=== PATIENT | female | born 1975 | race Caucasian/White ===

== ENCOUNTER → 2017-08-02 | Outpatient (CLI) | payer OTHER ==
--- NOTE | 2017-08-02 15:31 | MAMMOGRAPHY REPORT ---
BILATERAL DIGITAL SCREENING MAMMOGRAM WITH CAD: 08/02/2017 CLINICAL HISTORY: Routine screening. Patient has no complaints. TECHNIQUE: Bilateral CC and MLO views were obtained. Current study was also evaluated with a Compute r Aided Detection (CAD) system. COMPARISON: Additional films were requested but not obtained. [facility] Requested today. BREAST COMPOSITION: There are scattered areas of fibroglandular density in both breasts. FINDINGS: [place] skin markers were placed overlying the each nipple. There are benign coarse and r im calcifications bilaterally. No suspicious mass, architectural distortion or cluster of microcalci fications is seen. IMPRESSION: ACR BI-RADS CATEGORY 1: NEGATIVE There is no mammographic evidence of malignancy. Prior outside mammograms are currently being reques evelyne and if obtained and will be reviewed, compared to the current exam to assess for any more subtle changes, and an addendum will be made to this report. Otherwise, a 1 year screening mammogram is rec ommended. The patient will receive written notification of the results. Approximately 10% of breast cancers are not detected with mammography. A negative mammographic report should not delay biopsy if a clinically suggestive mass is present. Chelsey Crawford M.D. ay/:08/02/2017 15:03:40 Intern: Yumiko RAMIREZ(Pillo)(Demetris), [facility] letter sent: Normal 1/2 BI-RADS Code: ACR BI-RADS Category 1: Negative
== END | disposition home or self-care (01) ==
LOC: C.MAMM 13:03
PROVIDERS: ATTEND Family Medicine
DX: Z12.31 Encounter for screening mammogram for malignant neoplasm of breast (principal)

== ENCOUNTER 2019-11-13 07:56 | Inpatient (IN) ==
--- NOTE | 2019-11-01 22:47 | PAT Medication Instructions ---
Medication Instructions Date of Service November 01, 2019 Home Medications Allergy Shots 1 dose UD PRN Bentyl 20 mg PO UD PRN albuterol sulfate 3 puff INHALATION UD PRN aspirin [Aspir-81] 81 mg PO DAILY carvedilol 3.125 mg PO BID cyclobenzaprine 15 mg PO UD PRN fluticasone propionate [Flonase Allergy Relief] 1 spray INTRANASAL DAILY losartan 100 mg PO HS nitroglycerin [Nitrolingual] 400 mcg SUBLINGUAL UD PRN omeprazole magnesium [Prilosec OTC] 20 mg PO QAM ondansetron HCl [Zofran] 4 mg PO UD PRN rosuvastatin [Crestor] 20 mg PO HS valacyclovir [Valtrex] 500 mg PO HS Continue as directed Allergy Shots 1 dose UD PRN nitroglycerin [Nitrolingual] 400 mcg SUBLINGUAL UD PRN DO NOT take the morning of surgery Bentyl 20 mg PO UD PRN cyclobenzaprine 15 mg PO UD PRN Take morning of surgery With a small sip of water, OTHERWISE NOTHING TO EAT OR DRINK AFTER MIDNIGHT: albuterol sulfate 3 puff INHALATION UD PRN (if needed) aspirin [Aspir-81] 81 mg PO DAILY carvedilol 3.125 mg PO BID fluticasone propionate [Flonase Allergy Relief] 1 spray INTRANASAL DAILY nitroglycerin [Nitrolingual] 400 mcg SUBLINGUAL UD PRN (if needed) omeprazole magnesium [Prilosec OTC] 20 mg PO QAM ondansetron HCl [Zofran] 4 mg PO UD PRN (if needed) Take evening before surgery Bentyl 20 mg PO UD PRN (if needed) albuterol sulfate 3 puff INHALATION UD PRN (if needed) carvedilol 3.125 mg PO BID cyclobenzaprine 15 mg PO UD PRN (if needed) fluticasone propionate [Flonase Allergy Relief] 1 spray INTRANASAL DAILY losartan 100 mg PO HS nitroglycerin [Nitrolingual] 400 mcg SUBLINGUAL UD PRN (if needed) ondansetron HCl [Zofran] 4 mg PO UD PRN (if needed) rosuvastatin [Crestor] 20 mg PO HS valacyclovir [Valtrex] 500 mg PO HS Other Notes If you have any questions please call us at [phone] or [phone] or [phone] or [phone]
--- NOTE | 2019-11-02 08:38 | History & Physical Report ---
Date of Service November 02, 2019 date of surgery: 11-13-19 Assessment & Plan (1) Arthritis of knee, left: Further care discussed with patient and at this point in time has failed conservative measures and would like to proceed with a left total knee replacement. Plan on discharge will be home with home health physical therapy. DVT prophalaxis with TEDs, SCDs and will also place on aspirin 81 mg p.o. b.i.d. for a month postop. Patient will have follow up appointment in our office two weeks post op for staple/suture removal and re-evaluation. Patient otherwise has no other questions or concerns. she has a long-standing history of knee pain, she has had multiple knee scopes most recently in December with minimal to no relief she has grade 4 [id number] changes medial compartment grade 4 [id number] changes patellofemoral compartment she has had Visco supplementations multiple times cortical steroid injections multiple times been through clinical trials all with no relief she is only 44 years old we discussed previously consideration for total knee arthroplasty as a last resort discussed risk complications at this point that she is having substantial effect on quality of life we discussed the fact of a total joint replacements having a finite lifespan possibly need to be revised in her lifetime at this point, it is felt her best option is to move forward with total joint placement the point she can no longer tolerate the pain due to the fact we have exhausted all other c onservative measures. History of Present Illness Chief Complaint: left knee pain Primary Care Provider: Rogerio Arango MD Nkechi is a 44 year old female that complains of Left knee pain, presents for pre- op evaluation prior to a left total knee replacement by dr Ornelas at [facility]. She complains of pain, crepitus, decreased range of motion, instability and stiffness in her left knee. she states that the symptoms have been chronic and non-traumatic. she states that the symptoms occur constantly with intermittent worsening. Currently the patient states that the symptoms are moderate-severe. The pain is described as aching, sharp and throbbing. The symptoms occur continuously. The symptoms are aggravated by ascending stairs, daily activities, first steps while awake walking. Prior NSAIDs include Ibuprofen, Aleve, Mobic as well as Voltaren Gel. Prior pain medications include Tylenol and [place]. she has been treated with multiple previous visco series and cortisone injections in the past without much relief. She has had multiple knee arthroscopies, most recently December of last year which did not provide any relief. she was referred to clinical trials as well but was not a qualifying candidate. She discussed with Dr Ornelas the risks and benefits of the procedure as well as the longevity of the knee and need for revision surgery in the future given her age, she understands these risks but feels the pain is interfering her her quality of life and would like to proceed with a left knee replacement. Allergies Allergy/AdvReac Type Severity Reaction Status Date / Time Penicillins Allergy Unknown BABY - Verified 10/19/19 11:51 RASH & ITCHY - SEE NOTES BELOW Quinolones Allergy Unknown RASH Verified 10/19/19 11:51 tramadol Allergy Unknown FLU LIKE Verified 10/19/19 11:51 SYMPTOMS erythromycin base AdvReac Unknown N/V Verified 10/19/19 11:51 hydrocodone AdvReac Unknown SEE NOTES Verified 10/19/19 11:51 BELOW - "DIDN'T WORK ANYMORE" morphine AdvReac Unknown VERTIGO Verified 10/19/19 12:26 AND MOTION SICKNESS simvastatin [From Zocor] AdvReac Unknown MUSCLE Verified 10/19/19 11:51 ACHES CHEAP JEWELRY Allergy Unknown "CHEAP Uncoded 10/19/19 12:26 JEWELRY" BLISTERS/ITCHY LEVAQUIN Allergy Unknown ITCHY & Uncoded 10/19/19 11:51 SWELLING POLLEN,TREES, MOLD AND DOGS Allergy Unknown RECEIVES Uncoded 10/19/19 12:26 ALLERGY SHOTS WEEKLY FOR Home Medications Home Medications Medication Instructions Recorded Confirmed Type Allergy Shots 1 dose UD PRN 10/19/19 10/19/19 History Bentyl 20 mg PO UD PRN 10/19/19 10/19/19 History albuterol sulfate 3 puff INHALATION UD PRN 10/19/19 10/19/19 History aspirin [Aspir-81] 81 mg PO DAILY 10/19/19 10/19/19 History carvedilol 3.125 mg PO BID 10/19/19 10/19/19 History cyclobenzaprine 15 mg PO UD PRN 10/19/19 10/19/19 History fluticasone propionate [Flonase 1 spray INTRANASAL DAILY 10/19/19 10/19/19 History Allergy Relief] losartan 100 mg PO HS 10/19/19 10/19/19 History nitroglycerin [Nitrolingual] 400 mcg SUBLINGUAL UD PRN 10/19/19 10/19/19 History omeprazole magnesium [Prilosec OTC] 20 mg PO QAM 10/19/19 10/19/19 History ondansetron HCl [Zofran] 4 mg PO UD PRN 10/19/19 10/19/19 History rosuvastatin [Crestor] 20 mg PO HS 10/19/19 10/19/19 History valacyclovir [Valtrex] 500 mg PO HS 10/19/19 10/19/19 History Past Med/Surg History Medical History Acid reflux Blood in urine CHRONIC History of anesthesia reaction EMOTIONAL AFTER, CRYING AND GETS COLD History of heart attack 06/21/15 History of recurrent UTIs NONE IN LAST YR HTN (hypertension) Hyperlipidemia Osteoarthritis Sleep apnea CPAP Stress incontinence Surgical History History of arthroscopy of left knee MULTIPLE History of arthroscopy of right knee MULTIPLE History of back surgery History of bilateral breast reduction surgery AND LIFT History of cardiac cath STENT X1 ([place])- MONY [facility]ELAR History of section History of colonoscopy History of endoscopy History of foot surgery History of knee surgery LEFT RAMY History of laparoscopic cholecystectomy History of laparoscopy X2 FOR ENDOMETRIOSIS History of lumbar fusion History of partial hysterectomy OVARIES REMAIN History of throat surgery VOCAL CORDS NODULE/POLYP - X2 SURGERIES FOR TUBES IN EARS AT FIRST SURGERY AND 1 REMOVED AT SECOND SURGERY History of tonsillectomy and adenoidectomy Family History Father Family history of diabetes mellitus Mother Family history of diabetes mellitus Grandfather (Paternal) Family history of esophageal cancer Other Family history of lung cancer Family history of uterine cancer Social History Preferred Language: Russian Communication Ability: DYSLEXIC Surgical Manager Required: No Beliefs That Will Affect Care: None Current Living Situation: Spouse Other Information That Helps Us Care for You: No Feels Safe at Home: Yes Smoking Status: Current every day smoker Tobacco Type: cigarettes ; Cigarettes Per Day: UP TO 2 PACKS PER DAY ULTRA LIGHTS/ ADVISED NPO ; Do You Dip or Chew Tobacco: No ; Hx Alcohol Use: Yes Hx Substance Use: No Review of Systems Review of Systems: All systems reviewed & are unremarkable except as noted in HPI & below Constitutional: no fever, no chills and no sweats Respiratory: no cough and no dyspnea Cardiovascular: no chest pain, no dyspnea and no orthopnea Gastrointestinal: no abdominal pain, no nausea and no vomiting Musculoskeletal: as per Subjective / HPI Physical Exam Physical Exam: Ht: 5ft 3in Wt: 133kg BP: 128/82 Pulse: 80 Constitutional: WD/WN, vitals as above no acute distress Respiratory: normal respiratory effort, lungs clear to auscultation no respiratory distress, no labored breathing and does not use accessory muscles Cardiovascular: RRR, no murmur, no edema Gastrointestinal (Abdomen): normal bowel sounds, soft, nontender, no hepatosplenomegaly Musculoskeletal: Knee: + knee abnormal to inspection (left knee), + effusion (mild effusion), + surgical incision (well healed portals), + limited ROM of knee (ROM 0/3/110), + knee ROM with crepitation, + joint line tenderness (medial joint line) and + Vivien's sign positive; no deformity, no skin erythema, no ecchymosis, no valgus laxity, no varus laxity, anterior drawer test negative, Rochelle's sign negative and pivot shift test negative Results & Data Diagnostic Findings Left Knee X-ray from December 2018 confirms degenerative changes to the left knee, greatest medial compartments and patellofemoral joint, showing joint space narrowing, osteophyte formation. no acute bony pathology noted.
--- NOTE | 2019-11-02 11:55 | Anesthesiology Consultation ---
Date of Service November 02, 2019 Assessment & Plan (1) Encounter for pre-operative examination: PCP clearance 11/02/2019: "Patient is medically cleared. Perioperative recommendations regarding medications and treatment include continue current medications per surgeon." Case discussed with Dr. Klein. Patient has not been seen by cardiology since 2016; she states she was discharged from their care and to f/u with PCP. Confirmed with former cardiology office that she did not have any f/u appointments scheduled. Patient has poor functional status but no anginal symptoms. Post [place] echo from 2014 shows preserved EF. She is on appropriate medical mgmt for her CAD. OK to proceed with PCP clearance only. Chart Review Chart Review: Acceptable Risk for Surgery and Patient seen in Pre Admission Testing Teaching & Discussion Instructed NPO after midnight before surgery, except medications with 15 cc of water. Medication instructions provided according to the PAT guidelines. History Surgery Operation Date: 11/13/19 11:15 Proposed Procedures p Left Total Knee Arthroplasty - Carroll Ornelas DO Height/Weight Height: 5 ft 3 in Weight: 126.6 kg Allergies Allergy/AdvReac Type Severity Reaction Status Date / Time Penicillins Allergy Unknown BABY - Verified 10/19/19 11:51 RASH & ITCHY - SEE NOTES BELOW Quinolones Allergy Unknown RASH Verified 10/19/19 11:51 tramadol Allergy Unknown FLU LIKE Verified 10/19/19 11:51 SYMPTOMS erythromycin base AdvReac Unknown N/V Verified 10/19/19 11:51 hydrocodone AdvReac Unknown SEE NOTES Verified 10/19/19 11:51 BELOW - "DIDN'T WORK ANYMORE" morphine AdvReac Unknown VERTIGO Verified 10/19/19 12:26 AND MOTION SICKNESS simvastatin [From Zocor] AdvReac Unknown MUSCLE Verified 10/19/19 11:51 ACHES CHEAP JEWELRY Allergy Unknown "CHEAP Uncoded 10/19/19 12:26 JEWELRY" BLISTERS/ITCHY LEVAQUIN Allergy Unknown ITCHY & Uncoded 10/19/19 11:51 SWELLING POLLEN,TREES, MOLD AND DOGS Allergy Unknown RECEIVES Uncoded 10/19/19 12:26 ALLERGY SHOTS WEEKLY FOR Medications Home Medications Medication Instructions Recorded Confirmed Last Taken Allergy Shots 1 dose UD PRN 10/19/19 10/19/19 Unknown Bentyl 20 mg PO UD PRN 10/19/19 10/19/19 Unknown albuterol sulfate 3 puff INHALATION UD PRN 10/19/19 10/19/19 Unknown aspirin [Aspir-81] 81 mg PO DAILY 10/19/19 10/19/19 Unknown carvedilol 3.125 mg PO BID 10/19/19 10/19/19 10/19/19 cyclobenzaprine 15 mg PO UD PRN 10/19/19 10/19/19 Unknown fluticasone propionate [Flonase 1 spray INTRANASAL DAILY 10/19/19 10/19/19 Unknown Allergy Relief] losartan 100 mg PO HS 10/19/19 10/19/19 Unknown nitroglycerin [Nitrolingual] 400 mcg SUBLINGUAL UD PRN 10/19/19 10/19/19 Unknown omeprazole magnesium [Prilosec OTC] 20 mg PO QAM 10/19/19 10/19/19 10/19/19 ondansetron HCl [Zofran] 4 mg PO UD PRN 10/19/19 10/19/19 Unknown rosuvastatin [Crestor] 20 mg PO HS 10/19/19 10/19/19 Unknown valacyclovir [Valtrex] 500 mg PO HS 10/19/19 10/19/19 Unknown Past Medical History Medical History (Updated 11/08/19 @ 14:30 by Jose Alfredo Gayle) Acid reflux Blood in urine CHRONIC, MICROSCOPIC. NO LONGER FOLLOWS WITH UROLOGY. CAD (coronary artery disease) H/O [place]; s/p Xience stent to mid Ramus 2014. Preserved EF. No echo available, but cardiology note from 2017 has documented post-[place] echo from 2015 showing EF 50-55%, lateral hypokinesis, aortic root 3.8cm. History of heart attack 06/21/15 History of recurrent UTIs NONE IN LAST YR HTN (hypertension) Hyperlipidemia Morbid obesity with BMI of 45.0-49.9, adult Osteoarthritis Sleep apnea CPAP Stress incontinence Exercise / Class Metabolic Activity III < 4 Walking/Shop/Light housework (Cannot do stairs or incline without SOB; denies CP or SOB with ambulation on one level.) Past Family History Family History Father Family history of diabetes mellitus Mother Family history of diabetes mellitus Grandfather (Paternal) Family history of esophageal cancer Other Family history of lung cancer Family history of uterine cancer Past Surgical History Surgical History History of arthroscopy of left knee MULTIPLE History of arthroscopy of right knee MULTIPLE History of back surgery History of bilateral breast reduction surgery AND LIFT History of cardiac cath STENT X1 ([place])- MONY AVELAR History of section History of colonoscopy History of endoscopy History of foot surgery History of knee surgery LEFT RAMY History of laparoscopic cholecystectomy History of laparoscopy X2 FOR ENDOMETRIOSIS History of lumbar fusion History of partial hysterectomy OVARIES REMAIN History of throat surgery VOCAL CORDS NODULE/POLYP - X2 SURGERIES FOR TUBES IN EARS AT FIRST SURGERY AND 1 REMOVED AT SECOND SURGERY History of tonsillectomy and adenoidectomy Past Anesthesia History No Hx of Anesthesia Complications (OTHER THAN BELOW) and No Family Hx of Anesthesia Complications EMOTIONAL ON EMERGENCE FROM ANESTHESIA; CRYING. GETS COLD/SHIVERS. History of PONV No Hx of PONV (other than nausea from pain meds post op) and Hx of Motion Sickness Social History Smoking Status: Current every day smoker tobacco type: cigarettes Smoking cigarettes per day: 1-2 PACKS PER DAY/ ADVISED NPO Do You Dip or Chew Tobacco: No Hx Alcohol Use: Yes alcohol intake frequency: holidays/special occasions only Hx Substance Use: No substance use type: does not use Review of Systems Pt denies any recent chest pain, shortness of breath, palpitations, fever or URI. +dry cough, mild sinus drainage Physical Exam Vital Signs BP: not documented at PAT visit, but 110/78 at PCP clearance P: 79bpm SPO2: 99% RA T: 99.4 F R: 18 Constitutional + obese ENMT Mouth: + macroglossia; no dental restorations, no chipped teeth and no loose teeth Thyromental Distance: > or= 3.5 Finger Breadths (3.5) Mallampati Class: II Neck + short neck and + thick neck; neck extension not limited Respiratory normal respiratory effort Auscultation: lungs clear to auscultation bilaterally Cardiovascular Rate/Rhythm: regular rate and regular rhythm Heart Sounds: no murmur Testing Laboratory Results 11/02/19 12:00 11/02/19 11:00 PT 10.0 Seconds (9.0-12.0) 11/02/19 12:00 INR 1.0 (0.9-1.1) 11/02/19 12:00 APTT 30.5 Seconds (21.0-31.0) 11/02/19 12:00 Hemoglobin A1c 5.7 % (4.5-5.6) H 11/02/19 12:00 Urine Color Yellow 11/02/19 12:00 Urine Appearance Cloudy (Clear) A 11/02/19 12:00 Urine pH 5.5 (4.5-7.5) 11/02/19 12:00 Ur Specific [place] 1.023 (1.000-1.030) 11/02/19 12:00 Urine Protein Negative (Negative) 11/02/19 12:00 Urine Glucose (UA) Negative (Negative) 11/02/19 12:00 Urine Ketones Negative (Negative) 11/02/19 12:00 Urine Nitrite Negative (Negative) 11/02/19 12:00 Ur Leukocyte Esterase Negative (Negative) 11/02/19 12:00 Urine WBC (Auto) 1-5 /hpf (0-5) 11/02/19 12:00 Urine RBC (Auto) 10-30 /hpf (0-4) H 11/02/19 12:00 U Hyaline Cast (Auto) 1-5 /lpf (0-5) 11/02/19 12:00 U Epithel Cells (Auto) >30 /lpf (0-5) H 11/02/19 12:00 Urine Bacteria (Auto) 1+ (Negative) H 11/02/19 12:00 Blood Type A Positive 11/02/19 12:00 Antibody Screen NEGATIVE 11/02/19 12:00 11/02/19 12:00 Urine Culture - Final Urine,Clean Catch More than three types of organisms present, all moderate counts mixed probable skin rui. No further identifications or sensitivities to follow. Electrocardiogram Date: 11/02/19 Findings: + NSR @ (73) Chest X-Ray Date: 11/02/19 Findings: + NAD Stress Test Date: 11/05/14 Type: DSE Resting EF: 55-59% There is an adequate and appropriate heart rate and blood pressure response to the dobutamine/atropine stress protocol. The stress echo was negative for inducible ischemia. LV wall motion is normal at rest and with stress. LV systolic function is normal. No significant valvular disease is present.
--- NOTE | 2019-11-02 12:51 | XRay Report ---
XR chest Pre-admission PA/Lat CLINICAL HISTORY: Preoperative evaluation. COMPARISON STUDY: Chest radiograph March 06, 2006. FINDINGS: Lung volumes are normal. Lungs are clear. There is no pneumothorax or pleural effusion. Car diac size is normal. Mediastinal contours are normal. There is no evidence for pulmonary edema. IMPRESSION: No acute cardiopulmonary findings. ACT 112: Negative or not required by law. Electronically signed by: Williams Julio M.D. 11/02/2019 12:50 PM
[2019-11-02 12:54] LABS: Basophils # (auto) 0.04 K/uL (0-0.2); Basophils % (auto) 0.4 %; Eosinophils # (auto) 0.45 K/uL (0-0.5); Eosinophils % (auto) 4.2 %; Hematocrit (blood only) 44.2 % (37-47); Immature Granulocytes # (auto) 0.03 K/uL (0.00-0.02); Immature Granulocytes % (auto) 0.3 %; Lymphocytes # (auto) 2.75 K/uL (1.2-3.4); Lymphocytes % (auto) 25.6 %; Mean Corpuscular Hemoglobin 32.3 pg (25-34); Mean Corpuscular Hgb Conc 33.9 g/dL (32-36); Mean Corpuscular Volume 95.3 fL (80-100); Mean Platelet Volume 11.3 fL (7.4-10.4); Monocytes # (auto) 0.75 K/uL (0.11-0.59); Neutrophils # (auto) 6.74 K/uL (1.4-6.5); Neutrophils % (auto) 62.5 %; Platelet Count 238 K/uL (130-400); RDW Coefficient of Variation 13.9 % (11.5-14.5); Red Blood Count 4.64 M/uL (4.2-5.4); White Blood Count 10.76 K/uL (4.8-10.8)
[2019-11-02 12:58] LABS: Appearance Urine Cloudy (Clear); Bacteria Urine Automated 1+ (Negative); Bilirubin Urine Negative (Negative); Blood Urine 2+ (Negative); Color Urine Yellow; Epithelial Cell Urine Auto >30 /lpf (0-5); Glucose Urine UA Negative (Negative); Ketones Urine Negative (Negative); Leukocyte Esterase Urine Negative (Negative); Nitrite Urine Negative (Negative); Protein Urine Negative (Negative); Specific Gravity Urine 1.023 (1.000-1.030); Urobilinogen Urine Negative (Negative); pH Urine 5.5 (4.5-7.5)
[2019-11-02 13:02] LABS: Estimated Average Glucose 117 mg/dl; Hemoglobin A1C 5.7 % (4.5-5.6)
[2019-11-02 13:04] LABS: Albumin Level 3.9 gm/dl (3.4-5.0); BUN Creatinine Ratio 10.2 (10-20); Creatinine Clr Calc Pharmacy 116.3 ml/min; Est GFR (African American) 103.9; Est GFR (Non-African American) 89.7; Potassium 4.4 mmol/L (3.5-5.1)
[2019-11-02 13:06] LABS: Partial Thromboplastin Ratio 1.1; Partial Thromboplastin Time 30.5 Seconds (21.0-31.0)
--- NOTE | 2019-11-03 07:45 | Electrocardiogram Report ---
Test Reason : Blood Pressure : / mmHG Vent. Rate : 073 BPM Atrial Rate : 073 BPM P-R Int : 160 ms QRS Dur : 084 ms QT Int : 378 ms P-R-T Axes : 058 052 041 degrees QTc Int : 416 ms Normal sinus rhythm Normal ECG When compared with ECG of 06-MAR-2006 03:03, No significant change was found Confirmed by Milton Rapp ([id number]) on 11/03/2019 7:45:31 AM Referred By: Carroll Ornelas Confirmed By:Drew Rapp
[~2019-11-13 07:56] MED LIST: ACETAMINOPHEN 500 MG TAB PO SCH; BUPIVACAINE 0.5 % 5 MG/1 ML PF 10ML VIAL ONE; CLINDAMYCIN 600 MG/54 ML BAG IV SCH; CeleBREX 200 MG CAP PO SCH; GABAPENTIN 900 MG DOSE PO SCH; LR 500ML BOLUS, THEN 15ML/HR IV SCH; ROPIVACAINE 0.5% 5 MG/ML 30 ML VIAL ONE; ROPIVACAINE 0.5% HCL/PF 150 MG, BUPIVACAINE 0.5% MPF 30 ML, EPINEPHrine 30MG/30ML (OR U... INSTIL SCH; TRANEXAMIC ACID 1,000 MG **IV Intra-op IV SCH; TRANEXAMIC ACID 1,000 MG **IV Pre-op IV SCH; dexAMETHasone 4 MG TAB PO SCH
[2019-11-13] MEDS ORDERED: MIDAZOLAM HCL 1 MG/ML 2ML VIAL ONE ×2 (09:56)
[2019-11-13] MEDS ORDERED: fentaNYL citrate 100 MCG/2 ML VIAL ONE (09:56)
--- NOTE | 2019-11-13 10:04 | History & Physical Bridge Note ---
Date of Service November 13, 2019 History & Physical Bridge Note I have examined the patient, reviewed the History & Physical and in the interval since the performance of the History & Physical I have noted the following changes of clinical significance: no changes noted
[2019-11-13] MEDS ORDERED: ORTHO JOINT ANESTHETIC ONE (10:43)
[2019-11-13] MEDS ORDERED: BACITRACIN INJ 50,000 UNIT VIAL ONE (10:43)
[2019-11-13] MEDS ORDERED: ePHEDrine sulfate 50 MG/ML AMP IV PRN (11:35)
[2019-11-13] MEDS ORDERED: ATROPINE SULFATE 0.1 MG/ML 10ML SYR IV PRN (11:35)
[2019-11-13] MEDS ORDERED: PROPOFOL IV EMULSION 10 MG/ML 20 ML VIAL IV ONE (11:44)
[2019-11-13] MEDS ORDERED: LIDOCAINE HCL 2% 2 ML VIAL/AMP(20MG/ML) INFIL ONE (11:44)
--- NOTE | 2019-11-13 12:30 | Operative Report ---
Post Operative Report Pre & Post Diagnosis Operation Date: 11/13/19 11:15 Pre-Op Diagnosis: LEFT KNEE OSTEOARTHRITIS Post-Op Diagnosis: LEFT KNEE OSTEOARTHRITIS I identified the patient and participated in the time-out.: Yes Procedure Operation Date: 11/13/19 11:15 Actual Procedures p Left Total Knee Arthroplasty(Left) [employer] [employer] Nephew journey to non-block total knee arthroplasty size 4 femur 3 tibia 9 polyethylene 32 oval patella- Carroll Ornelas DO Surgeon Carroll Ornelas DO Lay Out Carpenter Kaiden MONTOYA Estimated Blood Loss 5 Findings Consistent with Post-Op Diagnosis Patient presents severe end-stage DJD of the left knee no response to conservative management patient was noted to have varus alignment subchondral cystic changes marginal osteophytes eburnated bone moderate to large effusion wi th [id number] patellofemoral as well as medial lateral compartment Specimens Bone and cartilage Drains Medium bore Hemovac Complications none Disposition Accompanied Patient To Recovery: No Disposition: Recovery Room Indications Patient presents being seen evaluate complaints of ongoing pain to the left knee she had a longstanding history of knee problems with previous [place] some 20 years prior she has had multiple knee arthroscopies failed attempts at conservative management at young age would including a corticosteroid injections [place] supplementation bracing relative rest activity modification and presents after failure with therefore the above with the above findings at time of surgery status post Cary reconstruction Description of Procedure After proper identificationAfter proper prepping and draping of the left lower extremity anterior midline incision was made over the region of the extensor extensor mechanism after meticulous hemostasis was obtained and maintained in subcutaneous tissues a medial parapatellar incision was made The patella was subluxed lateralward the medial lateral gutter were cleaned from any hypertrophic synovitis and scar tissue of the distal femoral block was placed and the distal femoral osteotomy cut was made subsequently the chamfers anterior and posterior osteotomy cuts were made utilizing the 4-in-1 block the tibia was subsequently subluxed anteriorward medial and ateral meniscal remnants were excised in their entirety remnants of the anterior and posterior cruciate ligaments were excised in their entirety excellent exposure of the proximal tibia was obtained the tibial osteotomy guide was placed on the proximal tibial osteotomy cut was made once again the knee was irrigated with copious amounts of sterile saline solution the patella was subsequently everted lateralward thickened scar tissue around the patella was removed the patella was subsequently cut utilizing a freehand technique and was drilled prepared for final preparation and placement of patella socially flexion-extension gaps were checked and the equal and symmetric trials were placed to the appropriate femoral and tibial trials with poly-spacer being placed for equal flexion and extension gaps and full range of motion including extension to 0 and flexion to 140 the trial components after having been taken to recovery range of motion was subsequently removed meticulous hemostasis was obtained and maintained subsequently a knee block injection of joint cocktail including ropivacaine 0.5% 150 mg. Bupivacaine 0.5% epinephrine 1-200,030 mL's toradol 30 mg dexamethasone 4 mg ketamine 10 mg clonidine 100 micrograms normal saline solution 30 mg was infiltrated into the soft tissues of the posterior knee medial lateral gutters and periosteal synovium special attention was paid to protect neurovascular structures at all times subsequently trial components having been removed the knee was irrigated with sterile saline solution. debris was removed the proximal tibia was subsequently prepared and was made ready for the placement of the tibial component tibial component was also cemented and tamped into position the femoral component was subsequently placed and cemented in the position the patellar component was subsequently cemented in position because hemostasis once again obtained and maintained wound having been thoroughly irrigated with debridement and debridement lavage was performed as well as a medial parapatellar incision closed with #1 Vicryl in interrupted fashion subcutaneous was closed with #2 Vicryl skin was closed with skin clips. PA-C was necessary for prepping and drapping as well as wound closure of deep fascia Sub cutaneous tissue and skin and was necessary for the case. A sterile compressive dressing was placed patient was taken to recovery in stable condition of report dictated by Johnson I attest to the content of the Intraoperative Record and any orders documented therein. Any exceptions are noted below. I attest to the content of the Intraoperative Record and any orders documented therein. Any exceptions are noted below.
[2019-11-13] MEDS ORDERED: PHENYLEPHRINE 100MCG/ML 5ML SYR ONE (12:53)
--- NOTE | 2019-11-13 14:02 | XRay Report ---
XR knee LT 1 or 2V routine CLINICAL HISTORY: 44 years-old Female presenting with Surgical Post Op. TECHNIQUE: Frontal and crosstable lateral views of the left knee were obtained. COMPARISON: None. FINDINGS: Postsurgical changes of total left knee arthroplasty with patellar resurfacing. Expected intra-articu lar and soft tissue emphysema. Surgical drain in place. No malalignment. No periprosthetic fracture o r lucency. IMPRESSION: Expected postsurgical appearance status post total left knee arthroplasty with patellar resurfacing. ACT 112: Negative or not required by law. Electronically signed by: Walter Malhotra M.D. 11/13/2019 2:01 PM
--- NOTE | 2019-11-13 14:17 | Anesthesiology Progress Note ---
Date of Service November 13, 2019 Anesthesia Post Procedure Vital Signs Vital Signs: Temp Pulse Resp BP Pulse Ox 11/13/19 14:15 36.4 C L 69 20 126/80 96 11/13/19 14:05 36.4 C L 68 20 128/75 96 11/13/19 13:55 71 18 97/64 L 95 11/13/19 13:45 78 19 123/66 97 11/13/19 13:35 79 17 107/66 97 11/13/19 13:26 36 C L 80 16 125/63 97 Pain Intensity Left Knee: Pain Intensity: 2 Transfer of Care Handoff Completed per policy Notes Mental Status: alert / awake / arousable and participated in evaluation Patient Amnestic to Procedure: Yes Nausea / Vomiting: adequately controlled Pain: adequately controlled Airway Patency, RR, SpO2: stable & adequate BP & HR: stable & adequate Hydration State: stable & adequate Neuraxial Anesthesia: was administered and sensory block is resolving Anesthetic Complications: no major complications apparent
[2019-11-13] MEDS ORDERED: DICYCLOMINE HCL 20 MG TAB PO PRN (14:43)
[2019-11-13] MEDS ORDERED: ALBUTEROL HFA 8 GM INHALER INH PRN (14:43)
[2019-11-13] MEDS ORDERED: ONDANSETRON INJ 2 MG/ML 2 ML VIAL IV PRN (14:43)
[2019-11-13] MEDS ORDERED: HYDROmorphone INJ 0.5 MG/0.5 ML SYR IV PRN (14:43)
[2019-11-13] MEDS ORDERED: bisacodyL 10 MG SUPP PR PRN (14:43)
[2019-11-13] MEDS ORDERED: NALOXONE HCL 0.4 MG/1 ML VIAL/CARP IV PRN (14:43)
[2019-11-13] MEDS ORDERED: MAGNESIUM HYDROXIDE SUSP 30 ML UDC PO PRN (14:43)
[2019-11-13] MEDS ORDERED: NITROGLYCERIN 60 SPRAYS/4.9 GM SPRAY SL PRN (14:43)
[2019-11-13] MEDS ORDERED: SODIUM CHLORIDE 0.9% 1000ML 1,000 ML IV SCH (15:15)
[2019-11-13] MEDS ORDERED: SENNA 8.6 MG TAB PO SCH (21:00)
[2019-11-13] MEDS ORDERED: LOSARTAN POTASSIUM 50 MG TAB PO SCH (21:00)
[2019-11-13] MEDS ORDERED: ROSUVASTATIN CALCIUM 20 MG TAB PO SCH (21:00)
[2019-11-13] MEDS: CLINDAMYCIN 600 MG in DEXTROSE 5% 50 ML IV SCH (21:22)
[2019-11-13] MEDS: KETOROLAC 30 MG/ML VIAL IV PRN (21:25)
[2019-11-13] MEDS: DOCUSATE SODIUM 100 MG CAP PO SCH (21:28)
[2019-11-13] MEDS: carvediloL 3.125 MG TAB PO SCH (21:29)
[2019-11-13] MEDS: ASPIRIN 81 MG ECTAB PO SCH (21:31)
[2019-11-13] MEDS: ACETAMINOPHEN 500 MG TAB PO SCH (21:32)
[2019-11-14] MEDS: KETOROLAC 30 MG/ML VIAL IV PRN (03:33)
[2019-11-14] MEDS: CLINDAMYCIN 600 MG in DEXTROSE 5% 50 ML IV SCH (03:34)
[2019-11-14] MEDS: ACETAMINOPHEN 500 MG TAB PO SCH ×2 (05:41→12:55)
[2019-11-14 05:52] LABS: Hemoglobin 13.4 g/dL (12.0-16.0); Mean Corpuscular Hemoglobin 32.4 pg (25-34); Mean Corpuscular Hgb Conc 34.4 g/dL (32-36); Mean Corpuscular Volume 94.4 fL (80-100); Mean Platelet Volume 10.5 fL (7.4-10.4); Platelet Count 260 K/uL (130-400); RDW Coefficient of Variation 13.6 % (11.5-14.5); RDW Standard Deviation 47.4 fL (36.4-46.3); Red Blood Count 4.13 M/uL (4.2-5.4); White Blood Count 17.25 K/uL (4.8-10.8)
[2019-11-14 06:22] LABS: Calcium 8.8 mg/dl (8.5-10.1)
[2019-11-14 06:33] LABS: Creatinine Clr Calc Pharmacy 103.4 ml/min; Est GFR (African American) 90.1; Est GFR (Non-African American) 77.8
--- NOTE | 2019-11-14 08:02 | Anesthesiology Progress Note ---
Date of Service November 14, 2019 Anesthesia Post Procedure Vital Signs Vital Signs: Temp Pulse Pulse Resp BP Pulse Ox 11/14/19 07:48 36.7 C 76 18 137/78 97 11/14/19 03:42 36.8 C 84 20 145/71 H 96 11/13/19 23:36 36.6 C 83 18 135/80 95 11/13/19 19:44 36.8 C 89 16 144/85 H 96 11/13/19 16:44 36.6 C 82 16 120/83 97 11/13/19 15:46 36.5 C 74 16 127/78 97 11/13/19 15:00 36.3 C L 68 16 113/75 97 11/13/19 14:44 36.4 C L 70 18 117/74 97 11/13/19 14:15 36.4 C L 69 20 126/80 96 11/13/19 14:05 36.4 C L 68 20 128/75 96 11/13/19 13:55 71 18 97/64 L 95 11/13/19 13:45 78 19 123/66 97 11/13/19 13:35 79 17 107/66 97 11/13/19 13:26 36 C L 80 16 125/63 97 Pain Intensity Left Knee: Pain Intensity: 2 Notes Mental Status: alert / awake / arousable and participated in evaluation Patient Amnestic to Procedure: Yes Nausea / Vomiting: adequately controlled Pain: adequately controlled Airway Patency, RR, SpO2: stable & adequate BP & HR: stable & adequate Hydration State: stable & adequate Neuraxial Anesthesia: was administered and sensory block resolved Anesthetic Complications: no major complications apparent and Pt Satisfied with anesthetic care
--- NOTE | 2019-11-14 08:13 | Orthopedic Progress Note ---
Date of Service November 14, 2019 Assessment & Plan (1) Arthritis of knee, left: Postop day 1 status post left total knee arthroplasty. PT/OT protocols. Weightbearing as tolerated. DVT prophylaxis with aspirin, SCDs, ELVER hose. Pain management with oxycodone, acetaminophen, hydromorphone. Leukocytosis-patient currently asymptomatic. Likely due to preoperative steroids and surgical stress. DC planning-patient is planning for outpatient PT upon discharge Subjective Postop day 1 status post left total knee arthroplasty. Patient is currently lying in bed. She is awake and alert without complaints. She states that she had moderate thigh pain yesterday afternoon however that is under much better control. She feels that her blocks are starting to wear off and she is having a little bit more discomfort in the left knee. She however states that it is tolerable. He denies shortness of breath, chest pain, lightheadedness. Physical Exam Physical Exam: Dressings are clean, dry, and intact. Calves are soft and nontender. Neurovascular is intact. Toes are mobile. She has good dorsiflexion and plantarflexion of the left foot and ankle. Hemovac drainage was 50 cc from the latest shift. Results & Data Vital Signs (Past 12 Hours) Vital Signs Temp Pulse Resp BP Pulse Ox 11/14/19 07:48 36.7 C 76 18 137/78 97 11/14/19 03:42 36.8 C 84 20 145/71 H 96 11/13/19 23:36 36.6 C 83 18 135/80 95 Laboratory Results Laboratory Results WBC 17.25 K/uL (4.8-10.8) H 11/14/19 05:30 RBC 4.13 M/uL (4.2-5.4) L 11/14/19 05:30 Hgb 13.4 g/dL (12.0-16.0) 11/14/19 05:30 Hct 39.0 % (37-47) 11/14/19 05:30 MCV 94.4 fL (80-100) 11/14/19 05:30 MCH 32.4 pg (25-34) 11/14/19 05:30 MCHC 34.4 g/dL (32-36) 11/14/19 05:30 RDW Std Deviation 47.4 fL (36.4-46.3) H 11/14/19 05:30 RDW Coeff of [place]illi[place] 13.6 % (11.5-14.5) 11/14/19 05:30 Plt Count 260 K/uL (130-400) 11/14/19 05:30 MPV 10.5 fL (7.4-10.4) H 11/14/19 05:30 Immature Gran % (Auto) 0.3 % 11/02/19 12:00 Neut % (Auto) 62.5 % 11/02/19 12:00 Lymph % (Auto) 25.6 % 11/02/19 12:00 [place] % (Auto) 7.0 % 11/02/19 12:00 Eos % (Auto) 4.2 % 11/02/19 12:00 Baso % (Auto) 0.4 % 11/02/19 12:00 Immature Gran # (Auto) 0.03 K/uL (0.00-0.02) H 11/02/19 12:00 Neut # (Auto) 6.74 K/uL (1.4-6.5) H 11/02/19 12:00 Lymph # (Auto) 2.75 K/uL (1.2-3.4) 11/02/19 12:00 [place] # (Auto) 0.75 K/uL (0.11-0.59) H 11/02/19 12:00 Eos # (Auto) 0.45 K/uL (0-0.5) 11/02/19 12:00 Baso # (Auto) 0.04 K/uL (0-0.2) 11/02/19 12:00 PT 10.0 Seconds (9.0-12.0) 11/02/19 12:00 INR 1.0 (0.9-1.1) 11/02/19 12:00 APTT 30.5 Seconds (21.0-31.0) 11/02/19 12:00 PTT Ratio 1.1 11/02/19 12:00 Sodium 138 mmol/L (136-145) 11/14/19 05:30 Potassium 4.0 mmol/L (3.5-5.1) 11/14/19 05:30 Chloride 108 mmol/L (98-107) H 11/14/19 05:30 Carbon Dioxide 24 mmol/L (21-32) 11/14/19 05:30 Anion Gap 6.0 (3-11) 11/14/19 05:30 BUN 13 mg/dl (7-18) 11/14/19 05:30 Creatinine 0.90 mg/dl (0.6-1.2) 11/14/19 05:30 Est Cr Clr Drug Dosing 103.4 ml/min 11/14/19 05:30 Est GFR ( Amer) 90.1 11/14/19 05:30 Est GFR (Non-Af Amer) 77.8 11/14/19 05:30 BUN/Creatinine Ratio 15.0 (10-20) 11/14/19 05:30 Glucose 218 mg/dl (70-99) H 11/14/19 05:30 Estimat Average Glucose 117 mg/dl 11/02/19 12:00 Hemoglobin A1c 5.7 % (4.5-5.6) H 11/02/19 12:00 Calcium 8.8 mg/dl (8.5-10.1) 11/14/19 05:30 Albumin 3.9 gm/dl (3.4-5.0) 11/02/19 11:00 Urine Color Yellow 11/02/19 12:00 Urine Appearance Cloudy (Clear) A 11/02/19 12:00 Urine pH 5.5 (4.5-7.5) 11/02/19 12:00 Ur Specific [place] 1.023 (1.000-1.030) 11/02/19 12:00 Urine Protein Negative (Negative) 11/02/19 12:00 Urine Glucose (UA) Negative (Negative) 11/02/19 12:00 Urine Ketones Negative (Negative) 11/02/19 12:00 Urine Blood 2+ (Negative) H 11/02/19 12:00 Urine Nitrite Negative (Negative) 11/02/19 12:00 Urine Bilirubin Negative (Negative) 11/02/19 12:00 Urine Urobilinogen Negative (Negative) 11/02/19 12:00 Ur Leukocyte Esterase Negative (Negative) 11/02/19 12:00 Urine WBC (Auto) 1-5 /hpf (0-5) 11/02/19 12:00 Urine RBC (Auto) 10-30 /hpf (0-4) H 11/02/19 12:00 U Hyaline Cast (Auto) 1-5 /lpf (0-5) 11/02/19 12:00 U Epithel Cells (Auto) >30 /lpf (0-5) H 11/02/19 12:00 Urine Bacteria (Auto) 1+ (Negative) H 11/02/19 12:00 Urine Yeast Not Reportable 11/02/19 12:00 Blood Type A Positive 11/02/19 12:00 Antibody Screen NEGATIVE 11/02/19 12:00
[2019-11-14] MEDS: DOCUSATE SODIUM 100 MG CAP PO SCH (08:14)
[2019-11-14] MEDS: ASPIRIN 81 MG ECTAB PO SCH (08:15)
[2019-11-14] MEDS: OXYCODONE HCL IR 5 MG TAB (IMMEDIATE RELEASE) PO PRN ×2 (08:29→12:39)
[2019-11-14] MEDS: carvediloL 3.125 MG TAB PO SCH (08:49)
[2019-11-14] MEDS ORDERED: MULTIVITAMIN TAB PO SCH (09:00)
[2019-11-14] MEDS ORDERED: PANTOprazole 40 MG TAB PO SCH (09:00)
[2019-11-14] MEDS ORDERED: FLUTICASONE PROPIONATE NA SPR 16 GM BTL SCH (09:00)
== END 2019-11-14 14:47 | disposition home health service (06) | DRG 470 ==
LOC: ASU 07:56 → 3E 13:37

== ENCOUNTER 2022-08-18 09:30 | Observation (INO) ==
--- NOTE | 2022-05-12 10:56 | PAT Medication Instructions ---
Medication Instructions Date of Service May 12, 2022 Home Medications Medication Instructions Recorded sennosides 8.6 mg tablet (Senokot) 17.2 mg PO HS PRN constipation #30 11/14/19 tabs Bentyl 20 mg PO UD PRN albuterol sulfate 90 mcg/actuation aerosol inhaler 3 puff inhalation UD PRN carvedilol 3.125 mg tablet 3.125 mg PO BID cyclobenzaprine 10 mg tablet 15 mg PO UD PRN fluticasone propionate 50 mcg/actuation nasal spray,suspension (Flonase Allergy Relief) 2 spray intranasal HS nitroglycerin 400 mcg/spray translingual (Nitrolingual) 400 mcg sublingual UD PRN omeprazole magnesium 20 mg tablet,delayed release (Prilosec OTC) 20 mg PO QAM ondansetron HCl 4 mg tablet (Zofran) 4 mg PO UD PRN rosuvastatin 20 mg tablet (Crestor) 20 mg PO HS valacyclovir 500 mg tablet (Valtrex) 500 mg PO UD sennosides 8.6 mg tablet (Senokot) 17.2 mg PO HS PRN amlodipine 2.5 mg tablet 2.5 mg PO HS aspirin 81 mg tablet 81 mg PO QAM bupropion HCl 150 mg 24 hr tablet, extended release (Wellbutrin XL) 150 mg PO BID Continue as directed nitroglycerin 400 mcg/spray translingual (Nitrolingual) 400 mcg sublingual UD PRN(if needed) ondansetron HCl 4 mg tablet (Zofran) 4 mg PO UD PRN(if needed) DO NOT take the morning of surgery Bentyl 20 mg PO UD PRN cyclobenzaprine 10 mg tablet 15 mg PO UD PRN Take morning of surgery With a small sip of water, OTHERWISE NOTHING TO EAT OR DRINK AFTER MIDNIGHT: albuterol sulfate 90 mcg/actuation aerosol inhaler 3 puff inhalation UD PRN(use if needed; please bring with you to hospital day of surgery if possible) carvedilol 3.125 mg tablet 3.125 mg PO BID omeprazole magnesium 20 mg tablet,delayed release (Prilosec OTC) 20 mg PO QAM aspirin 81 mg tablet 81 mg PO QAM (unless directed otherwise by surgeon) bupropion HCl 150 mg 24 hr tablet, extended release (Wellbutrin XL) 150 mg PO BID Take evening before surgery albuterol sulfate 90 mcg/actuation aerosol inhaler 3 puff inhalation UD PRN(if needed) carvedilol 3.125 mg tablet 3.125 mg PO BID fluticasone propionate 50 mcg/actuation nasal spray,suspension (Flonase Allergy Relief) 2 spray intranasal HS rosuvastatin 20 mg tablet (Crestor) 20 mg PO HS valacyclovir 500 mg tablet (Valtrex) 500 mg PO UD sennosides 8.6 mg tablet (Senokot) 17.2 mg PO HS PRN(if needed) amlodipine 2.5 mg tablet 2.5 mg PO HS bupropion HCl 150 mg 24 hr tablet, extended release (Wellbutrin XL) 150 mg PO BID Other Notes If you have any questions please call us at [phone] or [phone] or [phone] or [phone]
--- NOTE | 2022-05-17 13:22 | Anesthesiology Consultation ---
Date of Service May 17, 2022 Assessment & Plan (1) Encounter for pre-operative examination: - awaiting PCP pre-op evaluation. - from 11/02/2019 anesthesia consultation for left TKA: "Case discussed with Dr. Klein. Patient has not been seen by cardiology since 2016; she states she was discharged from their care and to f/u with PCP. Confirmed with former cardiology office that she did not have any f/u appointments scheduled. Patient has poor functional status but no anginal symptoms. Post CA echo from 2014 shows preserved EF. She is on appropriate medical mgmt for her CAD. OK to proceed with PCP clearance only." - COVID screening: Per assessment on 05/17/2022: Travel screen negative, no known COVID-19 positive contacts or current COVID-19 related symptoms in past 2 weeks. Pt vaccinated. Surgeon arranging preop COVID testing, scheduled 06/11/2022. Awaiting results. Chart Review Chart Review: Pending: Refer to Additional Notes / Consult section and Patient seen in Pre Admission Testing Teaching & Discussion Pre-Anesthesia Teaching/Discussion Notes: Instructed NPO after midnight before surgery, except medications with 15 cc of water. Medication instructions provided according to the PAT guidelines. History Surgery Operation Date: 06/15/22 09:45 Proposed Procedures p Right Total Knee Arthroplasty - Carroll Ornelas DO Height/Weight Height: 5 ft 3 in Weight: 128.4 kg Allergies Allergy/AdvReac Type Severity Reaction Status Date / Time Penicillins Allergy Unknown BABY - Verified 05/06/22 10:56 RASH & ITCHY - SEE NOTES BELOW Quinolones Allergy Unknown RASH Verified 05/06/22 10:56 tramadol Allergy Unknown FLU LIKE Verified 05/06/22 10:56 SYMPTOMS erythromycin base AdvReac Unknown N/V Verified 05/06/22 10:56 hydrocodone AdvReac Unknown SEE NOTES Verified 05/06/22 10:56 BELOW - "DIDN'T WORK ANYMORE" morphine AdvReac Unknown VERTIGO Verified 05/06/22 10:56 AND MOTION SICKNESS simvastatin [From Zocor] AdvReac Unknown MUSCLE Verified 05/06/22 10:56 ACHES CHEAP JEWELRY Allergy Unknown "CHEAP Uncoded 05/06/22 10:56 JEWELRY" BLISTERS/ITCHY LEVAQUIN Allergy Unknown ITCHY & Uncoded 05/06/22 10:56 SWELLING POLLEN,TREES, MOLD AND DOGS Allergy Unknown RECEIVES Uncoded 05/06/22 10:56 ALLERGY SHOTS WEEKLY FOR Medications Home Medications Medication Instructions Recorded Confirmed Last Taken Bentyl 20 mg PO UD PRN IBS 10/19/19 05/06/22 Unknown albuterol sulfate 90 mcg/actuation 3 puff inhalation UD PRN CHEST COLD 10/19/19 05/06/22 Unknown aerosol inhaler carvedilol 3.125 mg tablet 3.125 mg PO BID 10/19/19 05/06/22 11/13/19 05:30 cyclobenzaprine 10 mg tablet 15 mg PO UD PRN MUSCLE SPASMS 10/19/19 05/06/22 10/23/19 fluticasone propionate 50 2 spray intranasal HS 10/19/19 05/06/22 11/12/19 21:00 mcg/actuation nasal spray,suspension (Flonase Allergy Relief) nitroglycerin 400 mcg/spray 400 mcg sublingual UD PRN Chest 10/19/19 05/06/22 Unknown translingual (Nitrolingual) Pain omeprazole magnesium 20 mg 20 mg PO QAM 10/19/19 05/06/22 11/13/19 05:30 tablet,delayed release (Prilosec OTC) ondansetron HCl 4 mg tablet 4 mg PO UD PRN Nausea 10/19/19 05/06/22 Unknown (Zofran) rosuvastatin 20 mg tablet (Crestor) 20 mg PO HS 10/19/19 05/06/22 11/12/19 21:00 valacyclovir 500 mg tablet 500 mg PO UD 10/19/19 05/06/22 11/12/19 21:00 (Valtrex) sennosides 8.6 mg tablet (Senokot) 17.2 mg PO HS PRN constipation #30 11/14/19 05/06/22 Unknown tabs amlodipine 2.5 mg tablet 2.5 mg PO HS 05/06/22 05/06/22 Unknown aspirin 81 mg tablet 81 mg PO QAM 05/06/22 05/06/22 Unknown bupropion HCl 150 mg 24 hr tablet, 150 mg PO BID 05/06/22 05/06/22 Unknown extended release (Wellbutrin XL) Past Medical History Medical History Acid reflux controlled, stable per pt Blood in urine CHRONIC, MICROSCOPIC. NO LONGER FOLLOWS WITH UROLOGY. Bronchitis hx-last episode several yrs ago; inhaler on standby for recurrences-last use 10/2020 CAD (coronary artery disease) H/O CA; s/p Xience stent to mid Ramus 2014; Dr. Zion Solitario release 2015 Preserved EF. No echo available, but cardiology note from 2017 has documented post-CA echo from 2014 showing EF 50-55%, lateral hypokinesis, aortic root 3.8cm. History of chronic cough History of heart attack 06/21/15 HTN (hypertension) controlled, stable per pt Hyperlipidemia Morbid obesity with BMI of 45.0-49.9, adult Sleep apnea CPAP-compliant Stress incontinence Patient denies h/o stroke, seizures, heart failure, DM, blood clots or blood transfusions. Exercise / Class Metabolic Activity III < 4 Walking/Shop/Light housework (1-2 steps into home; denies CP or SOB with usual activities) Past Family History Family History Father Family history of diabetes mellitus Mother Family history of diabetes mellitus Grandfather (Paternal) Family history of esophageal cancer Other Family history of lung cancer Family history of uterine cancer Past Surgical History Surgical History History of arthroscopy of left knee MULTIPLE History of arthroscopy of right knee MULTIPLE History of back surgery History of bilateral breast reduction surgery AND LIFT History of cardiac cath STENT X1 (CA)- MONY AVELAR History of section History of colonoscopy History of endoscopy History of foot surgery History of knee surgery LEFT RAMY History of laparoscopic cholecystectomy History of laparoscopy X2 FOR ENDOMETRIOSIS History of left knee replacement 11/13/19: SAB at L3-L4 2 attempts + PNB. History of lumbar fusion History of partial hysterectomy OVARIES REMAIN History of throat surgery VOCAL CORDS NODULE/POLYP - X2 SURGERIES FOR TUBES IN EARS AT FIRST SURGERY AND 1 REMOVED AT SECOND SURGERY History of tonsillectomy and adenoidectomy Hx of myringotomy Bilat. placed and then removed a year later Past Anesthesia History No Hx of Anesthesia Complications and No Family Hx of Anesthesia Complications History of PONV No Hx of Motion Sickness and History of PONV (with certain pain meds) Social History Smoking Status: Current every day smoker tobacco type: cigarettes Smoking cigarettes per day: 20-40/day Do You Dip or Chew Tobacco: No Hx Alcohol Use: Yes Alcohol type: beer, wine and hard liquor alcohol intake frequency: holidays/special occasions only Hx Substance Use: No substance use type: does not use Review of Systems Patient denies chest pain, shortness of breath, dyspnea on exertion, fever, chills, wheezing, or palpitations. Physical Exam Vital Signs Vitals BP 134/82 P 90 TEMP 98.7 SP02 95% on RA RESP 17 Physical Short, thick neck Full cervical extension range of motion without pain TMD 3 finger breadths Mallampati Score 2 Dentition: intact, denies missing, chipped or loose teeth, caps/crowns, implants or bridges Lungs: normal respiratory effort. Clear throughout to auscultation, no adventitious breath sounds Cardiac: regular rate and rhythm, no murmurs noted Carotid arteries: negative bruit bilat Lab Results Anesthesia Preop Results Results Anesthesia Widget: WBC 8.48 K/ul (4.8-10.8) 05/17/22 Hgb 16.3 g/dl (12.0-16.0) H 05/17/22 Hct 48.3 % (34.1-44.9) H 05/17/22 Plt 280 K/uL (130-400) 05/17/22 Na 138 mmol/L (136-145) 05/17/22 K 3.9 mmol/L (3.5-5.1) 05/17/22 Cl 108 mmol/L (98-107) H 05/17/22 CO2 24 mmol/L (21-32) 05/17/22 BUN 12 mg/dl (6-23) 05/17/22 Creat 0.80 mg/dl (0.6-1.2) 05/17/22 Glucose Level 156 mg/dl (70-99(Fasting)) H 05/17/22 PT 10.3 Seconds (9.0-12.0) 05/17/22 PTT 31.3 Seconds (21.0-31.0) H 05/17/22 INR 1.0 (0.9-1.1) 05/17/22 HA1c 6.1 % (4.5-5.6) H 05/17/22 Urine Color Yellow 05/17/22 Urine Appearance Cloudy (Clear) A 05/17/22 Urine pH 5.5 (4.5-7.5) 05/17/22 Urine Specific [place] 1.033 (1.000-1.030) H 05/17/22 Urine Protein Trace (Negative) H 05/17/22 Urine Glucose (UA) Negative (Negative) 05/17/22 Urine Ketones Trace (Negative) H 05/17/22 Urine Blood 3+ (Negative) H 05/17/22 Urine Nitrite Negative (Negative) 05/17/22 Urine Bilirubin Negative (Negative) 05/17/22 Urine Urobilinogen Negative (Negative) 05/17/22 Urine Leukocyte Esterase Negative (Negative) 05/17/22 Urine WBC (Auto) 1-5 /hpf (0-5) 05/17/22 Urine RBC (Auto) 10-30 /hpf (0-4) H 05/17/22 Urine Hyaline Casts (Auto) 1-5 /lpf (0-5) 05/17/22 Urine Epithelial Cells (Auto) >30 /lpf (0-5) H 05/17/22 Urine Bacteria (Auto) 1+ (Negative) H 05/17/22 Blood Type A Positive 05/17/22 Antibody Screen NEGATIVE 05/17/22 Testing Laboratory Results Eber at surgeon's office made aware of abnormal UA. Electrocardiogram Date: 05/17/22 NSR, rate 89 bpm Chest X-Ray Date: 05/17/22 No lines and tubes are seen. The cardiomediastinal silhouette is normal. The lungs are clear. No evidence of pleural effusion or pneumothorax. IMPRESSION: No acute chest disease.
--- NOTE | 2022-05-17 14:13 | History & Physical Report ---
Date of Service May 17, 2022 date of surgery: 06/15/22 Procedure: Right Total Knee Arthroplasty Surgeon: Carroll Ornelas Assessment & Plan (1) Arthritis of right knee: Plan: Risks and benefits of procedure discussed in detail today, patient would like to proceed with a Right total knee replacement at [facility] as scheduled. will obtain medical clearance from PCP with [facility] prior to surgery as well as obtain PATs at [facility]. Will place on ASA 81mg po bid x 1 month post op, f/u 2 weeks post op for routine post-operative care and x-ray, sooner if having any problems. will make arrangements for HHPT at the time of discharge. At this point in time, has failed conservative measures and would like to proceed with surgical intervention. The risks and benefits have been discussed including, but not limited to, risk of infection, nerve injury, stiffness, loss of motion, failure to improve, etc. Reasonable outcomes and options of treatment were discussed. An explanation of appropriate alternatives to the procedure that may be advantageous were discussed and their risks and benefits, as well as the risks and benefits of not proceeding with treatment. I offered to answer any additional inquiries concerning the treatment involved. All the patient's questions were answered. The patient is agreeable, understanding of the treatment plan and alternatives, and wishes to proceed with the treatment plan. History of Present Illness Chief Complaint: Right knee pain Primary Care Provider: Rogerio Arango MD Nkechi is a 46-year-old female presents for preop valuation prior to right total knee replacement. She states she is having pain in this knee for several years now which is gradually worsened. She had a recent right knee arthroscopy about 8 months ago. She is also tried and failed conservative measures including cortisone injection as well as viscosupplementation. This point time is failed conservative measures like to proceed with a right total knee replacement Allergies Allergy/AdvReac Type Severity Reaction Status Date / Time Penicillins Allergy Unknown BABY - Verified 05/06/22 10:56 RASH & ITCHY - SEE NOTES BELOW Quinolones Allergy Unknown RASH Verified 05/06/22 10:56 tramadol Allergy Unknown FLU LIKE Verified 05/06/22 10:56 SYMPTOMS erythromycin base AdvReac Unknown N/V Verified 05/06/22 10:56 hydrocodone AdvReac Unknown SEE NOTES Verified 05/06/22 10:56 BELOW - "DIDN'T WORK ANYMORE" morphine AdvReac Unknown VERTIGO Verified 05/06/22 10:56 AND MOTION SICKNESS simvastatin [From Zocor] AdvReac Unknown MUSCLE Verified 05/06/22 10:56 ACHES CHEAP JEWELRY Allergy Unknown "CHEAP Uncoded 05/06/22 10:56 JEWELRY" BLISTERS/ITCHY LEVAQUIN Allergy Unknown ITCHY & Uncoded 05/06/22 10:56 SWELLING POLLEN,TREES, MOLD AND DOGS Allergy Unknown RECEIVES Uncoded 05/06/22 10:56 ALLERGY SHOTS WEEKLY FOR Home Medications Medication Instructions Recorded Confirmed Type Bentyl 20 mg PO UD PRN IBS 10/19/19 05/06/22 History albuterol sulfate 90 mcg/actuation 3 puff inhalation UD PRN CHEST COLD 10/19/19 05/06/22 History aerosol inhaler carvedilol 3.125 mg tablet 3.125 mg PO BID 10/19/19 05/06/22 History cyclobenzaprine 10 mg tablet 15 mg PO UD PRN MUSCLE SPASMS 10/19/19 05/06/22 History fluticasone propionate 50 2 spray intranasal HS 10/19/19 05/06/22 History mcg/actuation nasal spray,suspension (Flonase Allergy Relief) nitroglycerin 400 mcg/spray 400 mcg sublingual UD PRN Chest 10/19/19 05/06/22 History translingual (Nitrolingual) Pain omeprazole magnesium 20 mg 20 mg PO QAM 10/19/19 05/06/22 History tablet,delayed release (Prilosec OTC) ondansetron HCl 4 mg tablet 4 mg PO UD PRN Nausea 10/19/19 05/06/22 History (Zofran) rosuvastatin 20 mg tablet (Crestor) 20 mg PO HS 10/19/19 05/06/22 History valacyclovir 500 mg tablet 500 mg PO UD 10/19/19 05/06/22 History (Valtrex) sennosides 8.6 mg tablet (Senokot) 17.2 mg PO HS PRN constipation #30 11/14/19 05/06/22 Rx tabs amlodipine 2.5 mg tablet 2.5 mg PO HS 05/06/22 05/06/22 History aspirin 81 mg tablet 81 mg PO QAM 05/06/22 05/06/22 History bupropion HCl 150 mg 24 hr tablet, 150 mg PO BID 05/06/22 05/06/22 History extended release (Wellbutrin XL) Past Med/Surg History Medical History Acid reflux controlled, stable per pt Blood in urine CHRONIC, MICROSCOPIC. NO LONGER FOLLOWS WITH UROLOGY. Bronchitis hx-last episode several yrs ago; inhaler on standby for recurrences-last use 10/2020 CAD (coronary artery disease) H/O [place]; s/p Xience stent to mid Ramus 2014; Dr. Zion Solitario release 2015 Preserved EF. No echo available, but cardiology note from 2017 has documented post-[place] echo from 2014 showing EF 50-55%, lateral hypokinesis, aortic root 3.8cm. History of chronic cough History of heart attack 06/21/15 HTN (hypertension) controlled, stable per pt Hyperlipidemia Morbid obesity with BMI of 45.0-49.9, adult Sleep apnea CPAP-compliant Stress incontinence Surgical History History of arthroscopy of left knee MULTIPLE History of arthroscopy of right knee MULTIPLE History of back surgery History of bilateral breast reduction surgery AND LIFT History of cardiac cath STENT X1 ([place])- MONY AVELAR History of section History of colonoscopy History of endoscopy History of foot surgery History of knee surgery LEFT RAMY History of laparoscopic cholecystectomy History of laparoscopy X2 FOR ENDOMETRIOSIS History of left knee replacement 11/13/19: SAB at L3-L4 2 attempts + PNB. History of lumbar fusion History of partial hysterectomy OVARIES REMAIN History of throat surgery VOCAL CORDS NODULE/POLYP - X2 SURGERIES FOR TUBES IN EARS AT FIRST SURGERY AND 1 REMOVED AT SECOND SURGERY History of tonsillectomy and adenoidectomy Hx of myringotomy Bilat. 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 Beliefs That Will Affect Care: None marital status: Current Living Situation: Spouse Feels Safe at Home: Yes Assistive Devices: CPAP and Glasses Review of Systems Review of Systems: All systems reviewed & are unremarkable except as noted in HPI & below Constitutional: no fever, no chills and no sweats Respiratory: no cough and no dyspnea Cardiovascular: no chest pain, no dyspnea and no orthopnea Gastrointestinal: no abdominal pain, no nausea and no vomiting Musculoskeletal: as per Subjective / HPI Physical Exam Physical Exam: HT: 5ft 3in WT: 128kg Constitutional: WD/WN, vitals as above no acute distress Respiratory: normal respiratory effort, lungs clear to auscultation no respiratory distress, no labored breathing and does not use accessory muscles Cardiovascular: RRR, no murmur, no edema Gastrointestinal (Abdomen): normal bowel sounds, soft, nontender, no hepatosplenomegaly Musculoskeletal: Knee: + knee abnormal to inspection (RIGHT KNEE: ), + effusion (+1 effusion), + surgical incision (well healed portals), + limited ROM of knee (ROM 0/3/110), + knee ROM with crepitation, + joint line tenderness (medial joint line) and + Vivien's sign positive; no deformity, no skin erythema, no ecchymosis, no valgus laxity, no varus laxity, anterior drawer test negative, Rochelle's sign negative and pivot shift test negative Results & Data Results & Data ([facility]) Diagnostic Findings Right Knee X-ray: Right knee series showing degenerative changes to the right knee, narrowing of the medial compartment and patello-femoral joint with patellar spurring noted, findings showing joint space narrowing of the medial compartment and patello- femoral joint, osteophyte formation and subchondral sclerosis noted. overall varus alignment. no acute bony pathology noted.
--- NOTE | 2022-06-29 08:44 | History & Physical Report ---
Date of Service June 29, 2022 date of surgery: 07/27/22 Procedure: Right Total Knee Arthroplasty Surgeon: Carroll Ornelas Assessment & Plan (1) Arthritis of right knee: Plan: Risks and benefits of procedure discussed in detail today, patient would like to proceed with a Right total knee replacement at [facility] as scheduled. will obtain medical clearance from PCP with [facility] prior to surgery as well as obtain PATs at [facility]. Will place on ASA 81mg po bid x 1 month post op, f/u 2 weeks post op for routine post-operative care and x-ray, sooner if having any problems. will make arrangements for HHPT at the time of discharge. At this point in time, has failed conservative measures and would like to proceed with surgical intervention. The risks and benefits have been discussed including, but not limited to, risk of infection, nerve injury, stiffness, loss of motion, failure to improve, etc. Reasonable outcomes and options of treatment were discussed. An explanation of appropriate alternatives to the procedure that may be advantageous were discussed and their risks and benefits, as well as the risks and benefits of not proceeding with treatment. I offered to answer any additional inquiries concerning the treatment involved. All the patient's questions were answered. The patient is agreeable, understanding of the treatment plan and alternatives, and wishes to proceed with the treatment plan. History of Present Illness Chief Complaint: right knee pain Primary Care Provider: Rogerio Arango MD Nkechi is a 47-year-old female presents for preop valuation prior to right total knee replacement. She states she is having pain in this knee for several years now which is gradually worsened. She had a recent right knee arthroscopy about 8 months ago. She is also tried and failed conservative measures including cortisone injection as well as viscosupplementation. This point time is failed conservative measures like to proceed with a right total knee replacement Allergies Allergy/AdvReac Type Severity Reaction Status Date / Time Penicillins Allergy Unknown BABY - Verified 05/06/22 10:56 RASH & ITCHY - SEE NOTES BELOW Quinolones Allergy Unknown RASH Verified 05/06/22 10:56 tramadol Allergy Unknown FLU LIKE Verified 05/06/22 10:56 SYMPTOMS erythromycin base AdvReac Unknown N/V Verified 05/06/22 10:56 hydrocodone AdvReac Unknown SEE NOTES Verified 05/06/22 10:56 BELOW - "DIDN'T WORK ANYMORE" morphine AdvReac Unknown VERTIGO Verified 05/06/22 10:56 AND MOTION SICKNESS simvastatin [From Zocor] AdvReac Unknown MUSCLE Verified 05/06/22 10:56 ACHES CHEAP JEWELRY Allergy Unknown "CHEAP Uncoded 05/06/22 10:56 JEWELRY" BLISTERS/ITCHY LEVAQUIN Allergy Unknown ITCHY & Uncoded 05/06/22 10:56 SWELLING POLLEN,TREES, MOLD AND DOGS Allergy Unknown RECEIVES Uncoded 05/06/22 10:56 ALLERGY SHOTS WEEKLY FOR Home Medications Medication Instructions Recorded Confirmed Type Bentyl 20 mg PO UD PRN IBS 10/19/19 05/06/22 History albuterol sulfate 90 mcg/actuation 3 puff inhalation UD PRN CHEST COLD 10/19/19 05/06/22 History aerosol inhaler carvedilol 3.125 mg tablet 3.125 mg PO BID 10/19/19 05/06/22 History cyclobenzaprine 10 mg tablet 15 mg PO UD PRN MUSCLE SPASMS 10/19/19 05/06/22 History fluticasone propionate 50 2 spray intranasal HS 10/19/19 05/06/22 History mcg/actuation nasal spray,suspension (Flonase Allergy Relief) nitroglycerin 400 mcg/spray 400 mcg sublingual UD PRN Chest 10/19/19 05/06/22 History translingual (Nitrolingual) Pain omeprazole magnesium 20 mg 20 mg PO QAM 10/19/19 05/06/22 History tablet,delayed release (Prilosec OTC) ondansetron HCl 4 mg tablet 4 mg PO UD PRN Nausea 10/19/19 05/06/22 History (Zofran) rosuvastatin 20 mg tablet (Crestor) 20 mg PO HS 10/19/19 05/06/22 History valacyclovir 500 mg tablet 500 mg PO UD 10/19/19 05/06/22 History (Valtrex) sennosides 8.6 mg tablet (Senokot) 17.2 mg PO HS PRN constipation #30 11/14/19 05/06/22 Rx tabs amlodipine 2.5 mg tablet 2.5 mg PO HS 05/06/22 05/06/22 History aspirin 81 mg tablet 81 mg PO QAM 05/06/22 05/06/22 History bupropion HCl 150 mg 24 hr tablet, 150 mg PO BID 05/06/22 05/06/22 History extended release (Wellbutrin XL) Past Med/Surg History Medical History Acid reflux controlled, stable per pt Blood in urine CHRONIC, MICROSCOPIC. NO LONGER FOLLOWS WITH UROLOGY. Bronchitis hx-last episode several yrs ago; inhaler on standby for recurrences-last use 10/2020 CAD (coronary artery disease) H/O [place]; s/p Xience stent to mid Ramus 2014; Dr. Zion Solitario release 2015 Preserved EF. No echo available, but cardiology note from 2017 has documented post-[place] echo from 2014 showing EF 50-55%, lateral hypokinesis, aortic root 3.8cm. History of chronic cough History of heart attack 06/21/15 HTN (hypertension) controlled, stable per pt Hyperlipidemia Morbid obesity with BMI of 45.0-49.9, adult Sleep apnea CPAP-compliant Stress incontinence Surgical History History of arthroscopy of left knee MULTIPLE History of arthroscopy of right knee MULTIPLE History of back surgery History of bilateral breast reduction surgery AND LIFT History of cardiac cath STENT X1 ([place])- MONY AVELAR History of section History of colonoscopy History of endoscopy History of foot surgery History of knee surgery LEFT RAMY History of laparoscopic cholecystectomy History of laparoscopy X2 FOR ENDOMETRIOSIS History of left knee replacement 11/13/19: SAB at L3-L4 2 attempts + PNB. History of lumbar fusion History of partial hysterectomy OVARIES REMAIN History of throat surgery VOCAL CORDS NODULE/POLYP - X2 SURGERIES FOR TUBES IN EARS AT FIRST SURGERY AND 1 REMOVED AT SECOND SURGERY History of tonsillectomy and adenoidectomy Hx of myringotomy Bilat. placed and then removed a year later Family History Father Family history of diabetes mellitus Mother Family history of diabetes mellitus Grandfather (Paternal) Family history of esophageal cancer Other Family history of lung cancer Family history of uterine cancer Social History Smoking Status: Current every day smoker Cigarettes Per Day: 20-40/day; Second Hand Exposure: Yes ( smokes); Hx Alcohol Use: Yes Alcohol type: beer, wine and hard liquor Hx Substance Use: No Preferred Language: Romansh Communication Ability: Effective Assistant Research Scientist Required: No Beliefs That Will Affect Care: None marital status: Current Living Situation: Spouse Feels Safe at Home: Yes Assistive Devices: CPAP and Glasses Review of Systems Constitutional: no fever, no chills and no sweats Respiratory: no cough and no dyspnea Cardiovascular: no chest pain, no dyspnea and no orthopnea Gastrointestinal: no abdominal pain, no nausea and no vomiting Musculoskeletal: as per Subjective / HPI Physical Exam Physical Exam: HT: 5ft 3in WT: 128kg Constitutional: WD/WN, vitals as above no acute distress Respiratory: normal respiratory effort, lungs clear to auscultation no respiratory distress, no labored breathing and does not use accessory muscles Cardiovascular: RRR, no murmur, no edema Gastrointestinal (Abdomen): normal bowel sounds, soft, nontender, no hepatosplenomegaly Musculoskeletal: Knee: + knee abnormal to inspection (RIGHT KNEE: ), + effusion (+1 effusion), + surgical incision (well healed portals), + limited ROM of knee (ROM 0/3/110), + knee ROM with crepitation, + joint line tenderness (medial joint line) and + Vivien's sign positive; no deformity, no skin erythema, no ecchymosis, no valgus laxity, no varus laxity, anterior drawer test negative, Rochelle's sign negative and pivot shift test negative Results & Data Results & Data ([facility]) Diagnostic Findings Right Knee X-ray: Right knee series showing degenerative changes to the right knee, narrowing of the medial compartment and patello-femoral joint with patellar spurring noted, findings showing joint space narrowing of the medial compartment and patello- femoral joint, osteophyte formation and subchondral sclerosis noted. overall varus alignment. no acute bony pathology noted.
--- NOTE | 2022-07-30 09:44 | History & Physical Report ---
Date of Service July 30, 2022 date of surgery: 08/18/22 Procedure: Right Total Knee Arthroplasty Surgeon: Carroll Ornelas Assessment & Plan (1) Arthritis of right knee: Plan: Risks and benefits of procedure discussed in detail today, patient would like to proceed with a Right total knee replacement at [facility] as scheduled. will obtain medical clearance from PCP with [facility] prior to surgery as well as obtain PATs at [facility]. Will place on ASA 81mg po bid x 1 month post op, f/u 2 weeks post op for routine post-operative care and x-ray, sooner if having any problems. will make arrangements for HHPT at the time of discharge. At this point in time, has failed conservative measures and would like to proceed with surgical intervention. The risks and benefits have been discussed including, but not limited to, risk of infection, nerve injury, stiffness, loss of motion, failure to improve, etc. Reasonable outcomes and options of treatment were discussed. An explanation of appropriate alternatives to the procedure that may be advantageous were discussed and their risks and benefits, as well as the risks and benefits of not proceeding with treatment. I offered to answer any additional inquiries concerning the treatment involved. All the patient's questions were answered. The patient is agreeable, understanding of the treatment plan and alternatives, and wishes to proceed with the treatment plan. History of Present Illness Chief Complaint: right knee pain Primary Care Provider: Rogerio Arango MD Nkechi is a 47-year-old female presents for preop valuation prior to right total knee replacement. She states she is having pain in this knee for several years now which is gradually worsened. She had a recent right knee arthroscopy about 8 months ago. She is also tried and failed conservative measures including cortisone injection as well as viscosupplementation. This point time is failed conservative measures like to proceed with a right total knee replacement Allergies Allergy/AdvReac Type Severity Reaction Status Date / Time Penicillins Allergy Mild BABY - Verified 07/13/22 12:58 RASH & ITCHY - SEE NOTES BELOW Quinolones Allergy Mild RASH Verified 07/13/22 12:58 tramadol Allergy Mild FLU LIKE Verified 07/13/22 12:58 SYMPTOMS erythromycin base AdvReac Mild N/V Verified 07/13/22 12:58 morphine AdvReac Mild VERTIGO Verified 07/13/22 12:58 AND MOTION SICKNESS simvastatin [From Zocor] AdvReac Mild MUSCLE Verified 07/13/22 12:58 ACHES hydrocodone AdvReac Unknown SEE NOTES Verified 05/06/22 10:56 BELOW - "DIDN'T WORK ANYMORE" CHEAP JEWELRY Allergy Mild "CHEAP Uncoded 07/13/22 12:58 JEWELRY" BLISTERS/ITCHY LEVAQUIN Allergy Mild ITCHY & Uncoded 07/13/22 12:58 SWELLING POLLEN,TREES, MOLD AND DOGS Allergy Mild RECEIVES Uncoded 07/13/22 12:58 ALLERGY SHOTS WEEKLY FOR Home Medications Medication Instructions Recorded Confirmed Type albuterol sulfate 90 mcg/actuation 3 puff inhalation UD PRN CHEST COLD 10/19/19 07/13/22 History aerosol inhaler carvedilol 3.125 mg tablet 3.125 mg PO BID 10/19/19 07/13/22 History cyclobenzaprine 10 mg tablet 15 mg PO UD PRN MUSCLE SPASMS 10/19/19 07/13/22 History fluticasone propionate 50 2 spray intranasal HS 10/19/19 07/13/22 History mcg/actuation nasal spray,suspension (Flonase Allergy Relief) nitroglycerin 400 mcg/spray 400 mcg sublingual UD PRN Chest 10/19/19 07/13/22 History translingual (Nitrolingual) Pain omeprazole magnesium 20 mg 20 mg PO QAM 10/19/19 07/13/22 History tablet,delayed release (Prilosec OTC) ondansetron HCl 4 mg tablet 4 mg PO UD PRN Nausea 10/19/19 07/13/22 History (Zofran) rosuvastatin 20 mg tablet (Crestor) 20 mg PO HS 10/19/19 07/13/22 History valacyclovir 500 mg tablet 500 mg PO UD 10/19/19 07/13/22 History (Valtrex) sennosides 8.6 mg tablet (Senokot) 17.2 mg PO HS PRN constipation #30 11/14/19 07/13/22 Rx tabs amlodipine 2.5 mg tablet 2.5 mg PO HS 05/06/22 07/13/22 History aspirin 81 mg tablet 81 mg PO QAM 05/06/22 07/13/22 History bupropion HCl 150 mg 24 hr tablet, 150 mg PO BID 05/06/22 07/13/22 History extended release (Wellbutrin XL) dicyclomine 20 mg tablet 20 mg PO BID PRN Abdominal Pain 07/13/22 07/13/22 History multivitamin 1 tab PO DAILY 07/13/22 07/13/22 History Past Med/Surg History Medical History Acid reflux Blood in urine CHRONIC, MICROSCOPIC. NO LONGER FOLLOWS WITH UROLOGY. CAD (coronary artery disease) H/O IA; s/p Xience stent to mid Ramus 2014; Dr. Zion Solitario release 2016 Preserved EF. No echo available, but cardiology note from 2017 has documented post-IA echo from 2014 showing EF 50-55%, lateral hypokinesis, aortic root 3.8cm. History of chronic cough History of heart attack 06/21/15 HTN (hypertension) Hx of bronchitis hx-last episode several yrs ago; inhaler on standby for recurrences-last use 10/2020 Hyperlipidemia Morbid obesity with BMI of 45.0-49.9, adult Sleep apnea CPAP-compliant Stress incontinence Surgical History History of arthroscopy of left knee MULTIPLE History of arthroscopy of right knee MULTIPLE History of back surgery History of bilateral breast reduction surgery AND LIFT History of cardiac cath STENT X1 (IA)- MONY AVELAR 2015 History of section History of colonoscopy History of endoscopy History of foot surgery History of knee surgery LEFT RAMY History of laparoscopic cholecystectomy History of laparoscopy X2 FOR ENDOMETRIOSIS History of left knee replacement 11/13/19: SAB at L3-L4 2 attempts + PNB. History of lumbar fusion History of partial hysterectomy History of throat surgery VOCAL CORDS NODULE/POLYP - X2 SURGERIES FOR TUBES IN EARS AT FIRST SURGERY AND 1 REMOVED AT SECOND SURGERY History of tonsillectomy and adenoidectomy Hx of myringotomy Bilat. placed and then removed a year later Family History Father Family history of diabetes mellitus Mother Family history of diabetes mellitus Grandfather (Paternal) Family history of esophageal cancer Other Family history of lung cancer Family history of uterine cancer Social History Smoking Status: Current every day smoker Cigarettes Per Day: 20-40/day>ADVISED; Second Hand Exposure: Yes ( SMOKES); Do You Dip or Chew Tobacco: No; Tobacco Cessation Education Requested by Patient: No Hx Alcohol Use: Yes Alcohol type: beer, wine and hard liquor Hx Substance Use: No Preferred Language: Korean Communication Ability: Effective Seat Cover Maker Required: No Beliefs That Will Affect Care: None marital status: Current Living Situation: Spouse Other Information That Helps Us Care for You: No Feels Safe at Home: Yes Safety Concerns: Feels Safe At This Time Assistive Devices: CPAP and Glasses Review of Systems Constitutional: no fever, no chills and no sweats Respiratory: no cough and no dyspnea Cardiovascular: no chest pain, no dyspnea and no orthopnea Gastrointestinal: no abdominal pain, no nausea and no vomiting Musculoskeletal: as per Subjective / HPI Physical Exam Physical Exam: HT: 5ft 3in WT: 128kg Constitutional: WD/WN, vitals as above no acute distress Respiratory: normal respiratory effort, lungs clear to auscultation no respiratory distress, no labored breathing and does not use accessory muscles Cardiovascular: RRR, no murmur, no edema Gastrointestinal (Abdomen): normal bowel sounds, soft, nontender, no hepatosplenomegaly Musculoskeletal: Knee: + knee abnormal to inspection (RIGHT KNEE: ), + effusion (+1 effusion), + surgical incision (well healed portals), + limited ROM of knee (ROM 0/3/110), + knee ROM with crepitation, + joint line tenderness (medial joint line) and + Vivien's sign positive; no deformity, no skin erythema, no ecchymosis, no valgus laxity, no varus laxity, anterior drawer test negative, Rochelle's sign negative and pivot shift test negative Results & Data Results & Data ([facility]) Diagnostic Findings Right Knee X-ray: Right knee series showing degenerative changes to the right knee, narrowing of the medial compartment and patello-femoral joint with patellar spurring noted, findings showing joint space narrowing of the medial compartment and patello- femoral joint, osteophyte formation and subchondral sclerosis noted. overall varus alignment. no acute bony pathology noted.
[~2022-08-18 09:30] MED LIST changes: +BUPIVACAINE 0.25% 30 ML VIAL ONE; -CLINDAMYCIN 600 MG/54 ML BAG IV SCH; +FAMOTIDINE 20 MG TAB PO SCH; +METOCLOPRAMIDE HCL 10 MG TABLET PO SCH; -ROPIVACAINE 0.5% 5 MG/ML 30 ML VIAL ONE; -ROPIVACAINE 0.5% HCL/PF 150 MG, BUPIVACAINE 0.5% MPF 30 ML, EPINEPHrine 30MG/30ML (OR U... INSTIL SCH; +ROPIVACAINE 0.5% HCL/PF 150 MG, BUPIVACAINE 0.75% MPF 20 ML, EPINEPHrine 30MG/30ML (OR ... INFIL SCH; +ROPIVACAINE 0.5% HCL/PF 150 MG, BUPIVACAINE 0.75% MPF 20 ML, EPINEPHrine 30MG/30ML (OR ... INSTIL SCH; -TRANEXAMIC ACID 1,000 MG **IV Intra-op IV SCH; -TRANEXAMIC ACID 1,000 MG **IV Pre-op IV SCH; +VANCOMYCIN HCL 2,000 MG in SODIUM CHLORIDE 0.9% 500 ML IV SCH
--- NOTE | 2022-08-18 09:57 | History & Physical Bridge Note ---
Date of Service August 18, 2022 History & Physical Bridge Note I have examined the patient, reviewed the History & Physical and in the interval since the performance of the History & Physical I have noted the following changes of clinical significance: no changes noted
[2022-08-18] MEDS ORDERED: MIDAZOLAM HCL 1 MG/ML 2ML VIAL ONE (10:00)
[2022-08-18] MEDS ORDERED: PROPOFOL IV EMULSION 10 MG/ML 20 ML VIAL IV ONE ×3 (10:00→12:19)
[2022-08-18] MEDS ORDERED: fentaNYL citrate 100 MCG/2 ML VIAL ONE (10:00)
[2022-08-18] MEDS ORDERED: LIDOCAINE 2% MPF LOCAL 5 ML VIAL INFIL ONE (10:00)
[2022-08-18] MEDS ORDERED: TRANEXAMIC ACID / 0.7% NACL 1000MG/100ML BAG IV ONE (10:02)
[2022-08-18] MEDS ORDERED: ORTHO JOINT ANESTHETIC ONE (10:18)
[2022-08-18] MEDS ORDERED: ONDANSETRON INJ 2 MG/ML 2 ML VIAL IV PRN ×2 (10:20→14:09)
[2022-08-18] MEDS ORDERED: ATROPINE SULFATE 0.1 MG/ML 10ML SYR IV PRN (10:20)
[2022-08-18] MEDS ORDERED: fentaNYL citrate 100 MCG/2 ML VIAL IV PRN (10:20)
[2022-08-18] MEDS ORDERED: ePHEDrine sulfate 50 MG/ML AMP IV PRN (10:20)
[2022-08-18] MEDS ORDERED: TRANEXAMIC ACID / 0.7% NACL 1,000 MG/100 ML BAG IV ONE (11:24)
[2022-08-18] MEDS ORDERED: TRANEXAMIC ACID / 0.7% NACL 1,000 MG/100 ML BAG IV SCH ×2 (12:00)
--- NOTE | 2022-08-18 12:23 | Operative Report ---
Post Operative Report Pre & Post Diagnosis Operation Date: 06/15/22 09:45 <No data on this case meets the specified criteria> Operation Date: 08/18/22 11:55 Pre-Op Diagnosis: Arthritis of right knee Post-Op Diagnosis: Arthritis of right knee morbid obesity BMI 51.2 131.1 kg I identified the patient and participated in the time-out.: Yes Procedure Operation Date: 06/15/22 09:45 <No data on this case meets the specified criteria> Operation Date: 08/18/22 11:55 Actual Procedures p Right Total Knee Arthroplasty utilizing Salazar & Nephew journey 2 patient long block right total knee arthroplasty size 4 femur 3 tibia 11 mm polytwenty 9 oval patella (Right) - Carroll Ornelas DO Surgeon Carroll Ornelas DO Fretted Instrument Maker Hand Kaiden MONTOYA Estimated Blood Loss 5 Findings Consistent with Post-Op Diagnosis Patient presents with severe end-stage tricompartmental degenerative joint disease varus alignment subchondral sclerosis marginal osteophytes eburnated [id number] with moderate to large effusion Specimens Bone and cartilage Drains Medium bore Hemovac Anesthesia Type MAC Spinal Regional Complications none Disposition Accompanied Patient To Recovery: No Disposition: Recovery Room Indications Patient presents with severe end-stage tricompartmental degenerative joint disease after failed The patient is 131.1 kg with a BMI of 51.2. The patient's habitus did contribute to significant technical difficulty requiring extra time. Additional help was necessary in order to position the patient safely. The use of specialized (longer, deeper) retractors and/or instruments were needed. Due to this, the procedure took 20 minutes longer than the standard total knee arthroplasty."attempted conservative management clinic physical therapy relative rest activity modification previous arthroscopy conservative management bracing she presents for total knee arthroplasty Description of Procedure After proper prepping and draping of the Right lower extremity anterior midline incision was made over the region of the extensor extensor mechanism after meticulous hemostasis was obtained and maintained in subcutaneous tissues a medial parapatellar incision was made The patella was subluxed lateralward the medial lateral gutter were cleaned from any hypertrophic synovitis and scar tissue of the distal femoral block was placed and the distal femoral osteotomy cut was made subsequently the chamfers anterior and posterior osteotomy cuts were made utilizing the 4-in-1 block the tibia was subsequently subluxed anteriorward medial and ateral meniscal remnants were excised in their entirety remnants of the anterior and posterior cruciate ligaments were excised in their entirety excellent exposure of the proximal tibia was obtained the tibial osteotomy guide was placed on the proximal tibial osteotomy cut was made once again the knee was irrigated with copious amounts of sterile saline solution the patella was subsequently everted lateralward thickened scar tissue around the patella was removed the patella was subsequently cut utilizing a freehand technique and was drilled prepared for final preparation and placement of patella socially flexion-extension gaps were checked and the equal and symmetric trials were placed to the appropriate femoral and tibial trials with poly-spacer being placed for equal flexion and extension gaps and full range of motion including extension to 0 and flexion to 140 the trial components after having been taken to recovery range of motion was subsequently removed meticulous hemostasis was obtained and maintained subsequently a knee block injection of joint cocktail including ropivacaine 0.5% 150 mg. Bupivacaine 0.5% epinephrine 1-200,030 mL's toradol 30 mg dexamethasone 4 mg ketamine 10 mg clonidine 100 micrograms normal saline solution 30 mg was infiltrated into the soft tissues of the posterior knee medial lateral gutters and periosteal synovium special attention was paid to protect neurovascular structures at all times subsequently trial components having been removed the knee was irrigated with sterile saline solution. debris was removed the proximal tibia was subsequently prepared and was made ready for the placement of the tibial component tibial component was also cemented and tamped into position the femoral component was subsequently placed and cemented in the position the patellar component was subsequently cemented in position because hemostasis once again obtained and maintained wound having been thoroughly irrigated with debridement and debridement lavage was performed as well as a medial parapatellar incision closed with #1 Vicryl in interrupted fashion subcutaneous was closed with #2 Vicryl skin was closed with skin clips. LINDSAY-Shahida was necessary for prepping and drapping as well as wound closure of deep fascia Sub cutaneous tissue and skin and was necessary for the case. A sterile compressive dressing was placed patient was taken to recovery in stable condition of report dictated by Johnson I attest to the content of the Intraoperative Record and any orders documented therein. Any exceptions are noted below.Due to the complex nature of the procedure, the entire surgery was performed with the operational assistance of Kaiden MONTOYA. The desk assistant, under direct supervision, was involved in the actual performance of all aspects of the surgical procedure including hemostasis, tissue retraction and incision, instrument management, patient positioning, and wound closure. I attest to the content of the Intraoperative Record and any orders documented therein. Any exceptions are noted below.
--- NOTE | 2022-08-18 13:39 | Anesthesiology Progress Note ---
Date of Service August 18, 2022 Anesthesia Post Procedure Vital Signs Vital Signs: Temp Pulse Resp BP Pulse Ox O2 Del Method O2 Flow Rate 08/18/22 13:25 72 18 116/69 95 Room Air 08/18/22 13:15 71 18 112/69 97 Oxymask 4 08/18/22 13:05 77 18 112/72 95 Oxymask 4 08/18/22 12:59 36.8 C 77 18 119/72 96 Oxymask 4 08/18/22 09:58 36.8 C 89 20 152/94 H 98 Room Air 08/18/22 09:58 Room Air Pain Intensity Right Knee: Pain Intensity: 5 Transfer of Care Handoff Completed per policy Notes Mental Status: alert / awake / arousable and participated in evaluation Patient Amnestic to Procedure: Yes Nausea / Vomiting: adequately controlled Pain: adequately controlled Airway Patency, RR, SpO2: stable & adequate BP & HR: stable & adequate Hydration State: stable & adequate Neuraxial Anesthesia: was administered and sensory block is resolving Anesthetic Complications: no major complications apparent and Pt Satisfied with anesthetic care
[2022-08-18] MEDS ORDERED: NITROGLYCERIN 60 SPRAYS/4.9 GM SPRAY SL PRN (14:09)
[2022-08-18] MEDS ORDERED: CYCLOBENZAPRINE HCL 5 MG TAB PO PRN (14:09)
[2022-08-18] MEDS ORDERED: HYDROmorphone INJ 0.5 MG/0.5 ML SYR IV PRN (14:09)
[2022-08-18] MEDS ORDERED: bisacodyL 10 MG SUPP PR PRN (14:09)
[2022-08-18] MEDS ORDERED: ALBUTEROL HFA 8 GM INHALER INH PRN (14:09)
[2022-08-18] MEDS ORDERED: NALOXONE HCL 0.4 MG/1 ML VIAL/CARP IV PRN (14:09)
[2022-08-18] MEDS ORDERED: diphenhydrAMINE 50 MG/ML VIAL IV PRN (14:09)
[2022-08-18] MEDS ORDERED: DICYCLOMINE HCL 20 MG TAB PO PRN (14:09)
[2022-08-18] MEDS ORDERED: MAGNESIUM HYDROXIDE SUSP 30 ML UDC PO PRN (14:09)
[2022-08-18] MEDS ORDERED: VANCOMYCIN CONSULT ACTIVE PRN (14:09)
[2022-08-18] MEDS ORDERED: SODIUM CHLORIDE 0.9% 1000ML 1,000 ML IV SCH (14:09)
[2022-08-18] MEDS: ACETAMINOPHEN 500 MG TAB PO SCH ×2 (14:32→21:37)
--- NOTE | 2022-08-18 14:40 | XRay Report ---
XR knee RT 1 or 2V routine HISTORY: 47 years-old Female Surgical Post Op right knee total joint arthroplasty COMPARISON: None TECHNIQUE: 2 views of the right knee FINDINGS: Total joint arthroplasty with patellar resurfacing. Expected postoperative soft tissue swelling with deep tissue air an surgical drainage catheter. No acute fracture, alignment or unexpected opaque fore ign body. IMPRESSION: Total joint arthroplasty with expected postoperative changes. ACT 112: Negative or not required by law. The above report was generated using voice recognition software. It may contain grammatical, syntax o r spelling errors. Electronically signed by: Nader Harrington M.D. 08/18/2022 2:38 PM
[2022-08-18] MEDS: oxyCODONE HCL IR 5 MG TAB (IMMEDIATE RELEASE) PO PRN (19:35)
[2022-08-18] MEDS ORDERED: ROSUVASTATIN CALCIUM 20 MG TAB PO SCH (21:00)
[2022-08-18] MEDS ORDERED: FLUTICASONE PROPIONATE NA SPR 16 GM BTL SCH (21:00)
[2022-08-18] MEDS ORDERED: SENNA 8.6 MG TAB PO SCH (21:00)
[2022-08-18] MEDS ORDERED: amLODIPine BESYLATE 5 MG TAB PO SCH (21:00)
[2022-08-18] MEDS: DOCUSATE SODIUM 100 MG CAP PO SCH (21:35)
[2022-08-18] MEDS: buPROPion XL 150 MG TABCR PO SCH (21:36)
[2022-08-18] MEDS: ASPIRIN 81 MG ECTAB PO SCH (21:36)
[2022-08-18] MEDS: carvediloL 3.125 MG TAB PO SCH (21:38)
[2022-08-18] MEDS ORDERED: VANCOMYCIN HCL 2,000 MG in SODIUM CHLORIDE 0.9% 500 ML IV SCH (23:00)
[2022-08-19] MEDS: oxyCODONE HCL IR 5 MG TAB (IMMEDIATE RELEASE) PO PRN ×2 (00:53→07:40)
[2022-08-19] MEDS: ACETAMINOPHEN 500 MG TAB PO SCH (05:35)
[2022-08-19 06:42] LABS: Hematocrit (blood only) 35.8 % (34.1-44.9); Hemoglobin 12.6 g/dl (12.0-16.0); Mean Corpuscular Hgb Conc 35.2 g/dL (32.0-36.0); Mean Corpuscular Volume 93.7 fL (80.0-100.0); Mean Platelet Volume 11.6 fL (9.4-12.3); Platelet Count 243 K/uL (130-400); RDW Coefficient of Variation 12.8 % (11.5-14.5); RDW Standard Deviation 43.5 fL (36.4-46.3); Red Blood Count 3.82 M/uL (3.93-5.22); White Blood Count 20.81 K/ul (4.8-10.8)
[2022-08-19 07:11] LABS: BUN Creatinine Ratio 10.9 (10-20); Calcium 8.7 mg/dl (8.5-10.1); Creatinine Clr Calc Pharmacy 143.9 ml/min; Est GFR (African American) 123.2 ml/min; Est GFR (Non-African American) 106.3 ml/min; Potassium 3.9 mmol/L (3.5-5.1)
[2022-08-19] MEDS: carvediloL 3.125 MG TAB PO SCH (07:54)
[2022-08-19] MEDS: DOCUSATE SODIUM 100 MG CAP PO SCH (07:54)
[2022-08-19] MEDS: buPROPion XL 150 MG TABCR PO SCH (07:54)
[2022-08-19] MEDS: ASPIRIN 81 MG ECTAB PO SCH (07:54)
[2022-08-19] MEDS ORDERED: MULTIVITAMIN TAB PO SCH (09:00)
--- NOTE | 2022-08-19 09:33 | Orthopedic Progress Note ---
Date of Service August 19, 2022 Assessment & Plan (1) Arthritis of right knee: Plan: Postop day 1 status post right total knee arthroplasty. PT/OT protocols. Weightbearing as tolerated. DVT prophylaxis-aspirin p.o. twice daily, Ambar, ELVER orosco. Pain management as written. Patient will be likely getting a late discharge today secondary to right issues. Her pharmacy closes early in her town. Plan for ordering home pack for pain medication later today for the patient until she can get to her pharmacy tomorrow. Leukocytosis-patient currently asymptomatic. Vital signs are stable and she is afebrile. Likely secondary to preoperative steroids and or surgical stress. Discharge planning-patient is planning for outpatient PT upon discharge. Admission and Anticipated Discharge Date Admission Date: August 18, 2022 Subjective Postop day 1 Patient is sitting up in bed awake and alert. Mild discomfort around the drain site. Otherwise she is feeling well. Denies shortness of breath, chest pain, lightheadedness. She is hoping to go home today. Physical Exam Physical Exam: Dressings are clean, dry, and intact. Calves are soft and nontender. Neurovascular is intact. Toes are mobile. She has good dorsiflexion plantarflexion of the right foot. Hemovac drainage was 100 mL from the previous shift. Results & Data ([facility]) Vital Signs (Past 12 Hours) Vital Signs Temp Pulse Resp BP BP Pulse Ox O2 Del Method 08/19/22 07:45 36.6 C 72 16 107/72 95 08/19/22 04:25 36.8 C 75 20 99/67 L 97 Room Air 08/18/22 22:43 36.7 C 85 20 112/67 97 Room Air 08/18/22 21:40 96 H 137/84 Laboratory Results Laboratory Results WBC 20.81 K/ul (4.8-10.8) H 08/19/22 06:08 RBC 3.82 M/uL (3.93-5.22) L 08/19/22 06:08 Hgb 12.6 g/dl (12.0-16.0) 08/19/22 06:08 Hct 35.8 % (34.1-44.9) 08/19/22 06:08 MCV 93.7 fL (80.0-100.0) 08/19/22 06:08 MCH 33.0 pg (25.0-34.0) 08/19/22 06:08 MCHC 35.2 g/dL (32.0-36.0) 08/19/22 06:08 RDW Std Deviation 43.5 fL (36.4-46.3) 08/19/22 06:08 RDW Coeff of Lilliam 12.8 % (11.5-14.5) 08/19/22 06:08 Plt Count 243 K/uL (130-400) 08/19/22 06:08 MPV 11.6 fL (9.4-12.3) 08/19/22 06:08 Sodium 136 mmol/L (136-145) 08/19/22 06:08 Potassium 3.9 mmol/L (3.5-5.1) 08/19/22 06:08 Chloride 107 mmol/L (98-107) 08/19/22 06:08 Carbon Dioxide 22 mmol/L (21-32) 08/19/22 06:08 Anion Gap 7 (3-11) 08/19/22 06:08 BUN 7 mg/dl (6-23) 08/19/22 06:08 Creatinine 0.64 mg/dl (0.6-1.2) 08/19/22 06:08 Est Cr Clr Drug Dosing 143.9 ml/min 08/19/22 06:08 Est GFR ( Amer) 123.2 ml/min 08/19/22 06:08 Est GFR (Non-Af Amer) 106.3 ml/min 08/19/22 06:08 BUN/Creatinine Ratio 10.9 (10-20) 08/19/22 06:08 Glucose 139 mg/dl (70-99(Fasting)) H 08/19/22 06:08 Calcium 8.7 mg/dl (8.5-10.1) 08/19/22 06:08 SARS-CoV-2, RNA, NAAT NEGATIVE (NEGATIVE) 08/18/22 Unknown Blood Type A Positive 08/18/22 09:47 Antibody Screen NEGATIVE 08/18/22 09:47 Impressions Knee X-Ray 08/18/22 13:03 XR knee RT 1 or 2V routine HISTORY: 47 years-old Female Surgical Post Op right knee total joint arthropl asty COMPARISON: None TECHNIQUE: 2 views of the right knee FINDINGS: Total joint arthroplasty with patellar resurfacing. Expected postoperative soft tissue swelling with deep tissue air an surgical drainage catheter. No acute fracture, alignment or unexpected opaque foreign body. IMPRESSION: Total joint arthroplasty with expected postoperative changes. ACT 112: Negative or not required by law. The above report was generated using voice recognition software. It may contain grammatical, syntax or spelling errors. Electronically signed by: Nader Harrington M.D. 08/18/2022 2:38 PM
[2022-08-19] MEDS ORDERED: oxyCODONE IR HOME PACK PO ONE (10:53)
--- NOTE | 2022-08-19 11:18 | Discharge Summary ---
Date of Service August 19, 2022 Admission HPI Per Admitting Provider Nkechi is a 47-year-old female presents for preop valuation prior to right total knee replacement. She states she is having pain in this knee for several years now which is gradually worsened. She had a recent right knee arthroscopy about 8 months ago. She is also tried and failed conservative measures including cortisone injection as well as viscosupplementation. This point time is failed conservative measures like to proceed with a right total knee replacement Admission Exam Per Admitting Provider Physical Exam: HT: 5ft 3in WT: 128kg Constitutional: WD/WN, vitals as above no acute distress Respiratory: normal respiratory effort, lungs clear to auscultation no respiratory distress, no labored breathing and does not use accessory muscles Cardiovascular: RRR, no murmur, no edema Gastrointestinal (Abdomen): normal bowel sounds, soft, nontender, no hepatosplenomegaly Musculoskeletal: Knee: + knee abnormal to inspection (RIGHT KNEE: ), + effusion (+1 effusion), + surgical incision (well healed portals), + limited ROM of knee (ROM 0/3/110), + knee ROM with crepitation, + joint line tenderness (medial joint line) and + Vivien's sign positive; no deformity, no skin erythema, no ecchymosis, no valgus laxity, no varus laxity, anterior drawer test negative, Rochelle's sign negative and pivot shift test negative Principal Diagnosis Right knee osteoarthritis. Discharge Data Allergies Allergy/AdvReac Type Severity Reaction Status Date / Time Penicillins Allergy Mild BABY - Verified 08/18/22 09:49 RASH & ITCHY - SEE NOTES BELOW Quinolones Allergy Mild RASH Verified 08/18/22 09:49 tramadol Allergy Mild FLU LIKE Verified 08/18/22 09:49 SYMPTOMS erythromycin base AdvReac Mild N/V Verified 08/18/22 09:49 morphine AdvReac Mild VERTIGO Verified 08/18/22 09:49 AND MOTION SICKNESS simvastatin [From Zocor] AdvReac Mild MUSCLE Verified 08/18/22 09:49 ACHES hydrocodone AdvReac Unknown SEE NOTES Verified 08/18/22 09:49 BELOW - "DIDN'T WORK ANYMORE" CHEAP JEWELRY Allergy Mild "CHEAP Uncoded 07/13/22 12:58 JEWELRY" BLISTERS/ITCHY LEVAQUIN Allergy Mild ITCHY & Uncoded 07/13/22 12:58 SWELLING POLLEN,TREES, MOLD AND DOGS Allergy Mild RECEIVES Uncoded 07/13/22 12:58 ALLERGY SHOTS WEEKLY FOR Procedures Performed Operation Date: 06/15/22 09:45 <No data on this case meets the specified criteria> Operation Date: 08/18/22 11:55 Actual Procedures p Right Total Knee Arthroplasty(Right) - Carroll Ornelas DO Ordered Studies 08/18/22 05:00 US - OR guided needle placemen Routine Hospital Course (1) Arthritis of right knee: Patient:NKECHI URIAS Admit Date:08/18/22 MR#:[id number] Att Phy:Carroll Ornelas,D.OBryce Acct ID:[id number] Priscilla Phy:Rogerio Arango III, MD Date:1975 Fam Phy: Age:47 Location: Sex:F Room/Bed:[facility] cc: ~ *NOTICE TO RECEIVING [employer]/AGENCY This information is strictly Confidential and protected under [place] law. [place] law prohibits you from making any further disclosure of this information unless further disclosure is expressly permitted by the written consent of the person to whom it pertains or is authorized by law. A general authorization for the release of medical or other information is not sufficient for this purpose. Hospital accepts no responsibility if the information is made available to any other person, INCLUDING THE PATIENT. Date of Service August 19, 2022 Assessment & Plan (1) Arthritis of right knee: Plan: Postop day 1 status post right total knee arthroplasty. PT/OT protocols. Weightbearing as tolerated. DVT prophylaxis-aspirin p.o. twice daily, SCDs, ELVER hose. Pain management as written. Patient will be likely getting a late discharge today secondary to right issues. Her pharmacy closes early in her town. Plan for ordering home pack for pain medication later today for the patient until she can get to her pharmacy tomorrow. Leukocytosis-patient currently asymptomatic. Vital signs are stable and she is afebrile. Likely secondary to preoperative steroids and or surgical stress. Discharge planning-patient is planning for outpatient PT upon discharge. Admission and Anticipated Discharge Date Admission Date: August 18, 2022 Subjective Postop day 1 Patient is sitting up in bed awake and alert. Mild discomfort around the drain site. Otherwise she is feeling well. Denies shortness of breath, chest pain, lightheadedness. She is hoping to go home today. Physical Exam Physical Exam: Dressings are clean, dry, and intact. Calves are soft and n ontender. Neurovascular is intact. Toes are mobile. She has good dorsiflexion plantarflexion of the right foot. Hemovac drainage was 100 mL from the previous shift. Results & Data ([facility]) Vital Signs (Past 12 Hours) Vital Signs Temp Pulse Resp BP BP Pulse Ox O2 Del Method 08/19/22 07:45 36.6 C 72 16 107/72B 95 08/19/22 04:25 36.8 C 75 20 99/67 L 97 Room Air 08/18/22 22:43 36.7 C 85 20 112/67 97 Room Air 08/18/22 21:40 96 H 137/84 Laboratory Results Laboratory Results WBC 20.81 K/ul (4.8-10.8) H 08/19/22 06:08 RBC 3.82 M/uL (3.93-5.22) L 08/19/22 06:08 Hgb 12.6 g/dl (12.0-16.0) 08/19/22 06:08 Hct 35.8 % (34.1-44.9) 08/19/22 06:08 MCV 93.7 fL (80.0-100.0) 08/19/22 06:08 MCH 33.0 pg (25.0-34.0) 08/19/22 06:08 MCHC 35.2 g/dL (32.0-36.0) 08/19/22 06:08 RDW Std Deviation 43.5 fL (36.4-46.3) 08/19/22 06:08 RDW Coeff of Lilliam 12.8 % (11.5-14.5) 08/19/22 06:08 Plt Count 243 K/uL (130-400) 08/19/22 06:08 MPV 11.6 fL (9.4-12.3) 08/19/22 06:08 Sodium 136 mmol/L (136-145) 08/19/22 06:08 Potassium 3.9 mmol/L (3.5-5.1) 08/19/22 06:08 Chloride 107 mmol/L (98-107) 08/19/22 06:08 Carbon Dioxide 22 mmol/L (21-32) 08/19/22 06:08 Anion Gap 7 (3-11) 08/19/22 06:08 BUN 7 mg/dl (6-23) 08/19/22 06:08 Creatinine 0.64 mg/dl (0.6-1.2) 08/19/22 06:08 Est Cr Clr Drug Dosing 143.9 ml/min 08/19/22 06:08 Est GFR ( Amer) 123.2 ml/min 08/19/22 06:08 Est GFR (Non-Af Amer) 106.3 ml/min 08/19/22 06:08 BUN/Creatinine Ratio 10.9 (10-20) 08/19/22 06:08 Glucose 139 mg/dl (70-99(Fasting)) H 08/19/22 06:08 Calcium 8.7 mg/dl (8.5-10.1) 08/19/22 06:08 SARS-CoV-2, RNA, NAAT NEGATIVE (NEGATIVE) 08/18/22 Unknown Blood Type A Positive 08/18/22 09:47 Antibody Screen NEGATIVE 08/18/22 09:47 Impressions Knee X-Ray 08/18/22 13:03 XR knee RT 1 or 2V routine HISTORY: 47 years-old Female Surgical Post Op right knee total joint arthroplasty COMPARISON: None TECHNIQUE: 2 views of the right knee FINDINGS: Total joint arthroplasty with patellar resurfacing. Expected postoperative soft tissue swelling with deep tissue air an surgical drainage catheter. No acute fracture, alignment or unexpected opaque foreign body. IMPRESSION: Total joint arthroplasty with expected postoperative changes. ACT 112: Negative or not required by law. The above report was generated using voice recognition software. It may contain grammatical, syntax or spelling errors. Electronically signed by: Nader Harrington M.D. 08/18/2022 2:38 PM Total Time Total Time Spent Total Time Spent (In Minutes): 5 Discharge Plan Discharge Items Patient Disposition: Home - Self-Care Reason For Visit: Unilateral Primary Osteoarthritis Discharge Diagnosis: Right knee osteoarthritis Activity: Per Instructions section Weightbearing: Right weightbearing Weightbearing Comment: As tolerated with walker Non-emergency contact: Surgeon Call non-emergency contact if: you have any medication questions, your pain is not controlled, your temperature is above 101.5, your wound has increased redness and your wound has increased drainage Follow-up/Referrals: Carroll Ornelas DO [Surgeon] - (Follow-up with Dr. Ornelas in 2 weeks from the day of your surgery for your first postoperative appointment.) Rogerio Arango MD [Primary Care Provider] - Diet: Regular Addtl Attending Provider Instructions: ACTIVITY RECOMMENDATIONS: SELF CARE INSTRUCTIONS AFTER TOTAL KNEE REPLACEMENT A. You may need to continue a physical therapy program after discharge from the hospital. There are several options available to you. Your doctor will assist you in selecting the best one for you. 1. An out-patient facility 2 to 3 times a week for therapy or home therapy. 2. Continue working on all exercises taught to you in the hospital. Your goals should be to increase bending of your knee to 90 degrees and beyond and to fully straighten your knee. B. You may progress at your own pace from walking with a walker or crutches to a cane; then to no assistive devices. C. Make walking a part of your daily routine. Be up as much as comfortable with rest periods throughout the day. Rest with leg elevation is very important. Use the ice wrap frequently for the first 3-4 weeks. D. There are no restrictions on activities. You may ride in a car, shop, participate in mortgage loan assistant and all social activities. E. Wear the long elastic stockings (ELVER hose) 20 hours a day for 2 weeks after surgery. They can be removed several times a day for laundering and for a bath. F. You may shower, no tub baths until cleared by your doctor. SPECIAL CARE INSTRUCTIONS: VERY IMPORTANT TO READ AND REVIEW A. There are a few signs you need to watch for after you are home. Call [facility] if you notice any of the followin. Increased severe knee pain. Some pain is expected especially when you exercise. 2. Increased swelling in your leg or knee; pain or swelling of the calf muscle in either lower leg. 3. Any fluid drainage from the incision. 4. Shortness of breath or chest pain. B. Please call [facility] at if you have any concerns or questions about your operation or recovery. The doctor or his nurse will return your call promptly. C. You must take antibiotics before dental work, bladder, bowel or other surgery. Your doctor will provide you with a permanent care to carry describing this precaution. IMPORTANT: * REMEMBER TO TAKE ASPIRIN, 81 MG, TWICE DAILY FOR 4 WEEKS UNLESS OTHERWISE DIRECTED. THIS IS YOUR BLOOD THINNER. * HIGH RISK PATIENTS MAY BE PRESCRIBED A STRONGER BLOOD THINNER. THIS WILL BE PROVIDED AT DISCHARGE. * CALL IF INCREASED PAIN, REDNESS, DRAINAGE OR FEVER GREATER THAT 101. * WEAR ELVER HOSE 20 HOURS PER DAY FOR 2 WEEKS. * JAIR Dressing - This is a large suction dressing covering your incision. T his will help pull any excess drainage from the wound and allow your incision to heal properly. You may shower with this if you can keep the unit outside of the shower. If any bleeding or leakage is noted please call your doctor's office. This will remain on your incision for 7 days and then should be removed. This can be done yourself or by the home nursing staff if applicable. The entire un it is disposable once removed. Once removed, keep incision clean and dry. If redness or drainage is noted, please call your surgeon. . Once your jair dressing has been removed, please follow wound care instructions below. * DERMABOND Prineo- This is a mesh tape dressing that is covered with glue. It should remain in place until the incision is properly healed, usually 10-14 days. This dressing is designed to naturally slough off. You may trim the excess mesh tape as it peels off. Incision may be briefly wet in a shower. Dry immediately by blotting with a clean, dry towel. Do not bath or swim until instructed by your doctor. Do not scratch, rub, or pick at the dressing. Do not apply any topical ointments or lotions until dressing is completely removed and/or instructed by your doctor. There may be a small piece of suture material at one end of your incision. Do not pull or trim this. If it is bothersome or catching on clothing, you may cover it with a band-aid. FOLLOW UP VISIT: If appointment is not already scheduled: Please call [facility] to make a follow-up appointment for 2 weeks after your surgery at . Stand-Alone Forms: My [employer], Smoking Cessation Medications and DC Order Prescriptions: New acetaminophen [Tylenol Extra Strength] 500 mg Tablet 1,000 mg PO Q8 14 Days Qty: 84 0RF aspirin 81 mg Tablet,Delayed Release (Dr/Ec) 81 mg PO BID 30 Days Qty: 60 0RF polyethylene glycol 3350 [Miralax] 17 gram powder in packet 17 g PO DAILY PRN (Reason: constipation) Qty: 5 0RF sulfamethoxazole-trimethoprim [Bactrim DS] 800-160 mg tablet 1 tab PO Q12H Qty: 14 0RF oxycodone 5 mg tablet 5 - 10 mg PO Q4H PRN (Reason: pain) Qty: 30 0RF Continued cyclobenzaprine 10 mg Tablet 15 mg PO UD PRN (Reason: MUSCLE SPASMS) valacyclovir [Valtrex] 500 mg Tablet 500 mg PO UD Label Comments: CAN TAKE UP TO 2 TABLETS TWICE A DAY FOR COLD SORE OUTBREAK Rx Instructions: take BID; if cold sores, take 1000mg BID carvedilol 3.125 mg Tablet 3.125 mg PO BID fluticasone propionate [Flonase Allergy Relief] 50 mcg/actuation Conger,Suspension 2 spray INTRANASAL HS rosuvastatin [Crestor] 20 mg Tablet 20 mg PO HS omeprazole magnesium [Prilosec OTC] 20 mg Tablet,Delayed Release (Dr/Ec) 20 mg PO QAM ondansetron HCl [Zofran] 4 mg Tablet 4 mg PO UD PRN (Reason: Nausea) nitroglycerin [Nitrolingual] 400 mcg/spray Conger,Non-Aerosol 400 mcg sublingual UD PRN (Reason: Chest Pain) Label Comments: NO USE FOR 4 YRS albuterol sulfate 90 mcg/actuation Hfa Aerosol Inhaler 3 puff INHALATION UD PRN (Reason: CHEST COLD) sennosides [Senokot] 8.6 mg Tablet 17.2 mg PO HS PRN (Reason: constipation) Qty: 30 0RF amlodipine 2.5 mg Tablet 2.5 mg PO HS bupropion HCl [Wellbutrin XL] 150 mg Tablet Extended Release 24 Hr 150 mg PO BID multivitamin Tablet,Chewable 1 tab PO DAILY dicyclomine 20 mg Tablet 20 mg PO BID PRN (Reason: Abdominal Pain) Discontinued aspirin 81 mg Tablet 81 mg PO QAM acetaminophen [Tylenol] 325 mg Tablet 650 mg PO QID PRN (Reason: Pain) Discharge Orders: Discharge Order (Routine); Ordered 08/19/22 Ordered By: Kaiden Burns/Other Patient Handouts: Falls Prevent Adjust Living Space Admission Data Admit Date/Time: 08/18/22 13:03 Attending Provider: Carroll Ornelas Admit Provider: Carroll Ornelas Primary Care Provider: Rogerio Arango Other Interventions: Discharge Summary Assessment (RN) Last Done: 08/19/22 09:45
== END 2022-08-19 12:10 | disposition home or self-care (01) ==
LOC: 3E 09:30 → ASU 09:30